=== PATIENT | female | born 1940 | race Caucasian/White ===

== ENCOUNTER 2016-06-07 13:01 | Outpatient (RCR) | payer MEDICARE, OTHER ==
--- OUTSIDE RECORDS SUMMARY | 2016-05-23 12:26 | XMS REPORT | Continuity of Care Document ---
Author Author [facility] Organization [facility] Address Unknown Phone Unavailable Care Team Providers Care Ceramic Coater Name Role Phone TRACY GOMEZ DO PCP Insurance Providers Payer Name Policy Number Subscriber Name Relationship Wps Medicare [id number] Flaquita Nowak 18 Self / Same As Patient [employer] [id number] Flaquita Nowak 18 Self / Same As Patient Advance Directives Directive Response Recorded Date/Time Advance Directives No 10/15/15 3:57pm Health Care Power of Receiving Manager No 10/15/15 3:57pm Organ Donor Yes 10/15/15 3:57pm Resuscitation Status Full Code 10/15/15 3:57pm Chief Complaint and Reason for Visit Chief Complaint Abdominal/GI Problems Reason for Visit Constipation Problems Active Problems Medical Problem Onset Date Status Acute exacerbation of chronic obstructive airways disease Unknown Acute Altered mental status Unknown Acute Bronchitis Unknown Acute COPD (chronic obstructive pulmonary disease) Unknown Acute COPD (chronic obstructive pulmonary disease) Unknown Acute Cholecystitis Unknown Acute Constipation Unknown Acute Fever, unknown origin Unknown Acute Fever, unknown origin Unknown Acute General medical exam Unknown Acute Medications Current Home Medications Medication Dose Units Route Directions Days/Qty Instructions Start Date Albuterol Sulfate/Ipratropium 3 Ml 3 Ml Inhalation Every 4HRS as needed for Wheezing 30 BY NEBULIZER FOR WHEEZING OR UNCONTROLLED COUGH 06/30/13 Cetirizine Hcl 10 Mg 10 Mg Oral Daily 11/16/14 Ferrous Sulfate 325 ( 65 )Mg 325 Mg Oral Daily 11/16/14 Meloxicam (Mobic) 15 Mg 15 Mg Oral Daily 11/16/14 Gabapentin 100 Mg 100 Mg Oral Twice A Day 11/16/14 Gemfibrozil (Lopid) 600 Mg 600 Mg Oral Twice A Day 11/16/14 Fluticasone/Salmeterol 1 Each 1 Puff Inhalation Twice A Day as needed for Shortness Of Breath 11/16/14 Vitamin C/Vitamin E 1 Tab 1 Tab Oral Daily 11/16/14 Naproxen Na-Diphenhydramin Hcl 1 Each 1 Tab Oral Bedtime as needed for Insomnia 11/16/14 Lovastatin (Mevacor) 20 Mg 20 Mg Oral Daily 11/17/14 Sertraline Hcl 100 Mg 100 Mg Oral Daily 11/17/14 Alprazolam 0.25 Mg 0.25 Mg Oral Daily TAKES IN AM 11/17/14 Tiotropium [place] 4 Gm 1 Puff Inhalation Daily 11/17/14 Naproxen Sodium 220 Mg 220 Mg Oral Twice A Day as needed for Pain Alprazolam 0.25 Mg 0.5 Mg Oral Bedtime TAKES 2 (0.25MG) TABLETS Fluticasone Propionate 16 Gm 2 Sprays Nasal Daily 11/17/14 Cyanocobalamin 1,000 Mcg 1,000 Mcg Oral Daily 11/17/14 Insulin Glargine 100 Unit/1 Ml 20 Units Subcutaneously Bedtime 11/17 [Loperamide Hcl] 2 Mg 2 Mg Oral As Needed as needed for Diarrhea 02/26 Past Home Medications Medication Directions Ordered Status Metformin Hcl (Glucophage) 500 Mg Tablet, 500 Mg Oral Twice A Day 03/02/07 Discontinued Glipizide 10 Mg Tablet, 03/02/07 Discontinued Pravastatin Sodium 20 Mg Tablet, 40 Mg Oral Bedtime 03/02/07 Discontinued Alprazolam 0.5 Mg Tablet, 0.25 Mg Oral Three Times A Day as needed for Anxiety 03/02/07 Discontinued Paroxetine Hcl 20 Mg Tablet, 20 Mg Oral Daily 03/02/07 Discontinued Salmeterol Xinafoate/Fluticasone 250 Mcg/50 Mcg Inh, 03/02/07 Discontinued Gemfibrozil 600 Mg Tablet, 600 Mg Oral Twice A Day 03/02/07 Discontinued Gemfibrozil 600 Mg Tablet, 03/02/07 Discontinued Esomeprazole Magnesium 40 Mg Capsule.dr, 1 Cap Oral Daily 08/26/11 Discontinued Multivitamins/Iron/Folic Acid 1 Each Tablet, 1 Each Oral Daily 08/26/11 Discontinued Diclofenac Sodium 75 Mg Tablet.dr, 75 Mg Oral Daily 08/26/11 Discontinued Sucralfate 1 Gm Tab, 1 Gm Oral Three Times A Day 08/26/11 Discontinued [Oscal] , 1 Tab Daily 08/26/11 Discontinued Citalopram Hydrobromide 40 Mg Tablet, 1 Each Oral Daily 08/26/11 Discontinued Mometasone Furoate 17 Gm [place], 1 [place] Nasal As Directed 08/26/11 Discontinued Gabapentin 600 Mg Tablet, 200 Mg Oral Twice A Day 08/26/11 Discontinued Loratadine 10 Mg Tablet, 10 Mg Oral Daily 08/26/11 Discontinued Montelukast Sodium 10 Mg Tablet, 1 Tab Oral Daily 08/26/11 Discontinued Citalopram Hydrobromide 10 Mg Tablet, 20 Mg Oral Daily 02/22/12 Discontinued Ketoconazole 200 Mg Tablet, 200 Mg Oral Daily 02/22/12 Discontinued Omeprazole 20 Mg Capsule.dr, 1 Cap Oral Daily 02/22/12 Discontinued Insulin Glargine 300 Units/3 Ml Soln, 20 Units Sub-Q Bedtime 02/22/12 Discontinued Nitroglycerin 0.4 Mg Subl, 0.4 Mg Sublingual As Needed 02/22/12 Discontinued Fexofenadine Hcl 180 Mg Tablet, 1 Tab Oral Daily 02/22/12 Discontinued Albuterol Sulfate 5 Mg/Ml Solution, 5 Mg Inhalation Q6h Prn 02/22/12 Discontinued Hydrocodone Bit/Acetaminophen 1 Each Tablet, 1 Each Oral Every 6 Hours Discontinued Pramipexole Di-Hcl 0.5 Mg Tablet, 0.5 Mg Oral Daily 02/22/12 Discontinued [place]-3/Dha/Epa/Fish Oil 1 Each Capsule.dr, 1 Each Oral Daily 02/22/12 Discontinued Ferrous Sulfate 325 Mg Tab, 325 Mg Oral Daily 02/22/12 Discontinued Diphenoxylate Hcl/Atropine (Lomotil) 1 Tab Tablet, 1 Each Oral Qid Prn Discontinued Sucralfate 1 G Tablet, 1 G Oral Before Meals 10/10/12 Discontinued Ciprofloxacin 500 Mg Tab, 500 Mg Oral Twice A Day 12/06/12 Discontinued Hydrocodone Bit/Acetaminophen 1 Each Tablet, 1 Each Oral Every 6 Hours Discontinued Zolpidem Tartrate 5 Mg Tab, 5 Mg Oral Bedtime 07/06/13 Discontinued Insulin Detemir 100 Unit/1 Ml Insuln.pen, 20 Unit Sub-Q Bedtime 07/09/13 Discontinued Ranitidine Hcl 150 Mg Tablet, 1 Tab Oral Daily as needed for Indigestion Discontinued Cholestyramine Resin 4 G/Pkt Packet, 1 Pkt Oral Daily 07/09/13 Discontinued Diphenoxylate Hcl/Atropine (Lomotil) 1 Tab Tablet, 2.5 Mg Oral Qid Prn Discontinued Levothyroxine Sodium (Levothroid) 25 Mcg Tablet, 1 Each Oral Daily 07/09/13 Discontinued Sertraline Hcl 100 Mg Tab, 100 Mg Oral Daily 07/09/13 Discontinued Lovastatin (Mevacor) 20 Mg Tablet, 1 Each Oral Daily 07/09/13 Discontinued Oxycodone Hcl/Acetaminophen 1 Each Tablet, 1-2 Tab Oral As Directed as needed for Pain 07/09/13 Discontinued Ciprofloxacin Hcl 500 Mg Tablet, 500 Mg Oral Twice A Day 01/05/14 Discontinued Insulin Glargine,Hum.rec.anlog 100 Unit/1 Ml Vial, 20 Unit Sub-Q Bedtime 02/26 Discontinued Benzonatate (Tessalon Perles) 200 Mg Capsule, 1 Each Oral Three Times A Day as needed for Cough 07/22/14 Discontinued Cefdinir (Omnicef) 300 Mg Capsule, 1 Each Oral Twice A Day 07/22/14 Discontinued Tiotropium [place] 1 Inh Aerp, 1 Inh Inhalation 11/16/14 Discontinued Budesonide/Formoterol Fumarate 1 Inhaler [place], 1 Puff Inhalation Twice A Day as needed for Shortness Of Breath 11/16/14 Discontinued Fluticasone Propionate 16 Gm [place], 16 Gm Nasal 11/16/14 Discontinued Naproxen 500 Mg Tablet, 1 Each Oral Twice A Day 11/16/14 Discontinued Amoxicillin Trihydrate 500 Mg Tablet, 500 Mg Oral Three Times A Day 11/16/14 Discontinued Amoxicillin 500 Mg Capsule, 500 Mg Oral Three Times A Day 11/17/14 Discontinued Social History Social History Problem Response Recorded Date/Time Alcohol Use Denies Use 10/15/2015 3:57pm Recreational Drug Use No 10/15/2015 3:57pm Recent Foreign Travel No 10/15/2015 3:57pm Recent Infectious Disease Exposure No 10/15/2015 3:57pm Hospitalization with Isolation Denies 10/15/2015 3:57pm Sexually Transmitted Disease No 10/15/2015 3:57pm HIV/AIDS No 10/15/2015 3:57pm Smoking Status Former Smoker 10/15/2015 3:57pm Do you dip or chew tobacco? No 10/15/2015 3:57pm Query Response Start Date Stop Date Smoking Status Former Smoker 11/16/2004 Hospital Discharge Instructions No hospital discharge instructions. Plan of Care Discharge Date 10/15/15 4:47pm Disposition 01 HOME, SELF-CARE Condition at Discharge Improved Instructions/Education Provided Constipation (ED) Prescriptions See Medication Section Referrals TRACY GOMEZ DO - Primary Care Physician Additional Instructions/Education U should take one cap full of MiraLAX daily for the next 5 days which you can buy [id number] at [employer] or [employer] or any pharmacy Return to ER for any worsening symptoms such as abdominal pain, fevers, vomiting All discharge instructions reviewed with patient and/or family. Voiced understanding. Functional Status No functional status results. Allergies, Adverse Reactions, Alerts Allergen Type Severity Reaction Status Last Updated hydrocodone ([id number]) Allergy Intermediate Active 11/17/14 Aspirin Adverse Reaction Severe BLEEDING Active 06/30/13 albuterol ([id number]) Allergy Unknown Active 07/22/14 prednisone ([id number]) Allergy Unknown Active 07/22/14 Immunizations Name Given Type Date of Pneumonia Vaccine 02/12/13 Historical Date of Influenza Vaccine 02/12/13 Historical Tetanus Booster (TDap) Unknown Historical Vital Signs Acute Vital Signs Vital Response Date/Time Temperature (Fahrenheit) 97.0 degrees F (97.6 - 99.5) 10/15/2015 3:57pm Temperature (Calculated Celsius) 36.96906 degrees C (36.4 - 37.5) 10/15/2015 3:57pm Pulse Rate (adult) 96 bpm (60 - 90) 10/15/2015 3:57pm Respiratory Rate 18 bpm (12 - 24) 10/15/2015 3:57pm O2 Sat by Pulse Oximetry 94 % (88 - 100) 10/15/2015 3:57pm Blood Pressure 125/87 mm Hg 10/15/2015 3:57pm Blood Pressure Mean 100 mm Hg 10/15/2015 3:57pm Pain Pain Intensity 0 10/15/2015 3:57pm Height (Feet) 5 feet 10/15/2015 3:57pm Height (Inches) 5 inches 10/15/2015 3:57pm Height (Calculated Centimeters) 165.711037 cm 10/15/2015 3:57pm Weight (Pounds) 152 pounds 10/15/2015 3:57pm Weight (Calculated Kilograms) 68.096965 kilograms 10/15/2015 3:57pm Height 5 ft 5 in Weight 152 lb Body Mass Index 25.3 kg/m^2 Results No known relevant diagnostic tests, laboratory data and/or discharge summary. Procedures No known history of procedures. Encounters Encounter Location Arrival/Admit Date Discharge/Depart Date Attending Provider Departed Emergency Room [facility] 10/15/15 3:36pm 10/14 4:47pm JOHN GOLDMAN APRN Recent Diagnosis
[~2016-06-07 13:01] MED LIST: ADV1DS; ALBU5SOL10 IH; ALPR.5T PO; ALPR0.25 PO; ALPR0.254 PO; AMOX500C2 PO; AMOX500T2 PO; BENZ200C25 PO; BUDE6HFA IH; CEFD300C3 PO; CETI10CA8 PO; CHLS4PK PO; CIPR500T78 PO; CITA10TA PO; CITA40TA19 PO; CPR500T PO; CYAN10006 PO; DICL75TA2 PO; DIPH1TAB25 PO; FERR325C PO; FEXO180T PO; FLUT16SP13 NS; FLUT16SP22 NS; FLUT1DIS3 IH; FRS325T PO; GABA-486 PO; GABA600T2 PO; GEMF600T3 PO; GLIP-123; GMFB600T; GMFB600T PO; HYDR-2890 PO; HYDR-757 PO; INSU100C4 SQ; INSU100I16 SQ; INSU100V6 SC; INSU100V6 SQ; IPRA3AMP19 IH; KETO200T PO; LISI5TAB14; LORA10TA7 PO; LOVA20TA2 PO; LVT.025T PO; Loperamide Hcl PO; MELO-195 PO; MMT17NA NS; MNTL10T PO; MTF500T PO; MULT-298 PO; NAPR-243 PO; NAPR1TAB25 PO; NAPR220T29 PO; NF-ESOM40C PO; NFAMINITAB PO; NTR.4SL SL; OMEG-12 PO; OMEP20CA12 PO; OXYC-12 PO; PRAM0.5T4 PO; PRV20T PO; PRX20T PO; RNT150T PO; SCR1T1 PO; SENN-75 PO; SERT100T8 PO; SRTR100T PO; SUCR1TAB PO; TIOT18CA2 IH; TIOT4MIS2 INH; ZLP5T PO; oscal
== END 2016-08-21 | disposition home or self-care (01) ==
LOC: PULM 13:01
PROVIDERS: ATTEND Family Medicine
DX: J44.9 Chronic obstructive pulmonary disease, unspecified (principal)
CPT/HCPCS: 99211

== ENCOUNTER → 2016-06-22 | Outpatient (CLI) | payer MEDICARE, OTHER ==
--- OUTSIDE RECORDS SUMMARY | 2016-06-22 10:44 | XMS REPORT | Continuity of Care Document ---
Author Author [facility] Organization [facility] Address Unknown Phone Unavailable Care Team Providers Care Application Security Developer Name Role Phone TRACY GOMEZ DO PCP Insurance Providers Payer Name Policy Number Subscriber Name Relationship Wps Medicare [id number] Flaquita Nowak 18 Self / Same As Patient [employer] [id number] Flaquita Nowak 17 Self / Same As Patient Advance Directives Directive Response Recorded Date/Time Advance Directives No 10/15/15 3:57pm Health Care Power of Residential Life Director No 10/15/15 3:57pm Organ Donor Yes 10/15/15 [...] Oral Daily TAKES IN AM 11/17/14 Tiotropium [place] 4 Gm 1 Puff Inhalation Daily 11/17/14 [...] Daily 08/26/11 Discontinued Mometasone Furoate 17 Gm [place], 1 [place] Nasal As Directed 08/26/11 Discontinued Gabapentin 600 [...] Tablet, 0.5 Mg Oral Daily 02/22/12 Discontinued [place]-3/Dha/Epa/Fish Oil 1 Each Capsule.dr, 1 Each Oral [...] Oral Twice A Day 07/22/14 Discontinued Tiotropium [place] 1 Inh Aerp, 1 Inh Inhalation 11/16/14 Discontinued Budesonide/Formoterol Fumarate 1 Inhaler [place], 1 Puff Inhalation Twice A Day as needed for Shortness Of Breath 11/16/14 Discontinued Fluticasone Propionate 16 Gm [place], 16 Gm Nasal 11/16/14 Discontinued Naproxen 500 [...] next 5 days which you can buy [id number] at [email or web address] or [employer] or any pharmacy Return to ER for any worsening symptoms such as abdominal pain, fevers, vomiting All discharge instructions reviewed with patient and/or family. Voiced understanding. Functional Status No functional status results. Allergies, Adverse Reactions, Alerts Allergen Type Severity Reaction Status Last Updated hydrocodone ([id number]) Allergy Intermediate Active 11/17/14 Aspirin Adverse Reaction Severe BLEEDING Active 06/30/13 albuterol ([id number]) Allergy Unknown Active 07/22/14 prednisone ([id number]) Allergy Unknown Active 07/22/14 Immunizations Name Given Type Date of Pneumonia Vaccine 02/12/13 Historical Date of Influenza Vaccine 02/12/13 Historical Tetanus Booster (TDap) Unknown Historical Vital Signs Acute Vital Signs Vital Response Date/Time Temperature (Fahrenheit) 97.0 degrees F (97.6 - 99.5) 10/15/2015 3:57pm Temperature (Calculated Celsius) 36.89033 degrees C (36.4 - 37.5) 10/15/2015 3:57pm [...] 5 inches 10/15/2015 3:57pm Height (Calculated Centimeters) 165.519816 cm 10/15/2015 3:57pm Weight (Pounds) 152 pounds 10/15/2015 3:57pm Weight (Calculated Kilograms) 68.467215 kilograms 10/15/2015 3:57pm Height 5 ft 5 in Weight 152 lb Body Mass Index 25.3 kg/m^2 Results No known relevant diagnostic tests, laboratory data and/or discharge summary. Procedures No known history of procedures. Encounters Encounter Location Arrival/Admit Date Discharge/Depart Date Attending Provider Departed Emergency Room [facility] 10/15/15 3:36pm 10/14 4:47pm JOHN GOLDMAN APRN Recent Diagnosis
--- NOTE | 2016-06-22 17:02 | Diagnostic Imaging Report ---
PROCEDURE: US Thyroid. TECHNIQUE: Multiple real-time grayscale images were obtained of the thyroid in various projections. INDICATION: Thyromegaly. FINDINGS: There is a large elongated cystic structure eccentric to the right of midline and just caudal to the lower pole of the right thyroid lobe measuring 3.7 cm long axis with transverse thickness of 1 cm. It showed no nodularity or internal blood flow. Parenchymal cyst 9 mm in the lower pole of the left thyroid lobe noted. The remaining thyroid glands appeared unremarkable. IMPRESSION: Thyroidal parenchyma unremarkable aside from simple subcentimeter left lobe cyst. There is a large cystic lesion inferior to the lower pole of the right thyroid lobe presumed to account for the palpable abnormality. Dictated by: Dictated on workstation # [id number]
== END ==
LOC: RAD 10:40
PROVIDERS: ATTEND Family Medicine
DX: E03.9 Hypothyroidism, unspecified (principal)
CPT/HCPCS: 76536

== ENCOUNTER → 2016-07-06 | Outpatient (CLI) | payer MEDICARE, OTHER ==
--- OUTSIDE RECORDS SUMMARY | 2016-07-06 12:33 | XMS REPORT | Continuity of Care Document ---
Author Author [facility] Organization [facility] Address Unknown Phone Unavailable Care Team Providers Care Database Specialist Name Role Phone TRACY GOMEZ DO PCP Insurance Providers Payer Name Policy Number Subscriber Name Relationship Wps Medicare [id number] Flaquita Nowak 18 Self / Same As Patient [employer] [id number] Flaquita Nowak 17 Self / Same As Patient Advance Directives Directive Response Recorded Date/Time Advance Directives No 10/15/15 3:57pm Health Care Power of Cloth Examiner Hand No 10/15/15 3:57pm Organ Donor Yes 10/15/15 [...] Oral Daily TAKES IN AM 11/17/14 Tiotropium [place] 4 Gm 1 Puff Inhalation Daily 11/17/14 [...] Daily 08/26/11 Discontinued Mometasone Furoate 17 Gm [place], 1 [place] Nasal As Directed 08/26/11 Discontinued Gabapentin 600 [...] Tablet, 0.5 Mg Oral Daily 02/22/12 Discontinued [place]-3/Dha/Epa/Fish Oil 1 Each Capsule.dr, 1 Each Oral [...] Oral Twice A Day 07/22/14 Discontinued Tiotropium [place] 1 Inh Aerp, 1 Inh Inhalation 11/16/14 Discontinued Budesonide/Formoterol Fumarate 1 Inhaler [place], 1 Puff Inhalation Twice A Day as needed for Shortness Of Breath 11/16/14 Discontinued Fluticasone Propionate 16 Gm [place], 16 Gm Nasal 11/16/14 Discontinued Naproxen 500 [...] next 5 days which you can buy [id number] at [employer] or [employer] or any pharmacy Return to ER for any worsening symptoms such as abdominal pain, fevers, vomiting All discharge instructions reviewed with patient and/or family. Voiced understanding. Functional Status No functional status results. Allergies, Adverse Reactions, Alerts Allergen Type Severity Reaction Status Last Updated hydrocodone ([id number]) Allergy Intermediate Active 11/17/14 Aspirin Adverse Reaction Severe BLEEDING Active 06/30/13 albuterol ([id number]) Allergy Unknown Active 07/22/14 prednisone ([id number]) Allergy Unknown Active 07/22/14 Immunizations Name Given Type Date of Pneumonia Vaccine 02/12/13 Historical Date of Influenza Vaccine 02/12/13 Historical Tetanus Booster (TDap) Unknown Historical Vital Signs Acute Vital Signs Vital Response Date/Time Temperature (Fahrenheit) 97.0 degrees F (97.6 - 99.5) 10/15/2015 3:57pm Temperature (Calculated Celsius) 36.30868 degrees C (36.4 - 37.5) 10/15/2015 3:57pm [...] 5 inches 10/15/2015 3:57pm Height (Calculated Centimeters) 165.375715 cm 10/15/2015 3:57pm Weight (Pounds) 152 pounds 10/15/2015 3:57pm Weight (Calculated Kilograms) 68.692780 kilograms 10/15/2015 3:57pm Height 5 ft 5 in Weight 152 lb Body Mass Index 25.3 kg/m^2 Results No known relevant diagnostic tests, laboratory data and/or discharge summary. Procedures No known history of procedures. Encounters Encounter Location Arrival/Admit Date Discharge/Depart Date Attending Provider Departed Emergency Room [facility] 10/15/15 3:36pm 10/14 4:47pm JOHN GOLDMAN APRN Recent Diagnosis
--- NOTE | 2016-07-06 13:39 | Diagnostic Imaging Report ---
PROCEDURE: CT neck soft tissue without contrast. TECHNIQUE: Multiple contiguous axial images were obtained through the neck without the use of intravenous contrast. INDICATION: Right-sided neck mass. FINDINGS: The recent thyroid ultrasound exam performed on 06/22/16 noted an elongated 1 x 3.7 cm cystic mass along the inferior pole of the right lobe of the thyroid. That finding is again evident on this exam. This cystic mass does appear to extend across the midline and by my measurements this area measures approximately 3 x 3 cm. In reviewing the previous CT chest exam of 07/18/14, this cystic mass was not clearly evident. The ultrasound exam suggested that this cyst had a generally benign appearance. However, its precise etiology is not certain. The fact that it has developed since 2015 is also concerning. An ENT consult would be recommended for further evaluation. The thyroid gland is otherwise generally unremarkable. As noted on the ultrasound exam, there are a few small cysts within the gland. The remainder of the neck is unremarkable for an acute abnormality. There is no mass or adenopathy noted. The tracheal air shadow is not compressed or deviated. The visualized portions of the intracranial contents and the lung apices show no sign of an acute abnormality. There are emphysematous changes involving the lung apices. The bone windows are unremarkable for a fracture or for a destructive lesion. IMPRESSION: 1. There is a roughly 3 x 3 cm cystic mass extending caudally from the inferior pole of the right lobe of the thyroid across the midline. This finding is most likely benign although its precise etiology is not certain. An ENT consult would be recommended for further study. 2. There is no other mass or adenopathy noted. 3. There is no sign of an acute abnormality. 4. These results were discussed with Dr. Cronin. Dictated by: Dictated on workstation # [id number]
== END ==
LOC: RAD 12:29
PROVIDERS: ATTEND Family Medicine
DX: D23.4 Other benign neoplasm of skin of scalp and neck (principal)
CPT/HCPCS: 70490

== ENCOUNTER → 2016-11-07 | Outpatient (CLI) | payer MEDICARE, OTHER ==
--- NOTE | 2016-11-09 11:40 | Diagnostic Imaging Report ---
EXAMINATION: Bilateral screening mammogram with a Computer Aided Detection (CAD) system. INDICATION: Screening. PERSONAL HISTORY: No current complaints stated on the questionnaire. COMPARISON: 10/29/2013. FINDINGS: The breasts are composed of heterogeneously dense parenchyma which may decrease mammographic sensitivity. There are scattered benign-appearing calcifications. Allowing for technique and positional differences, no suspicious change is seen. IMPRESSION: No significant change. ACR BI-RADS Category 2: Benign findings. Result letter will be mailed to the patient. Note: At least 10% of breast cancer is not imaged by mammography. Dictated by: Dictated on workstation # [id number]
== END ==
LOC: RAD 10:25
PROVIDERS: ATTEND Family Medicine
DX: Z12.31 Encounter for screening mammogram for malignant neoplasm of breast (principal)
CPT/HCPCS: 77067

== ENCOUNTER 2016-11-12 08:30 | Emergency (ER) | payer MEDICARE, OTHER ==
[~2016-11-12] VITALS: Ht 165.1 cm; Wt 77.1 kg
[2016-11-12] MEDS ORDERED: NS IV 1000 ML 1,000 ML IV ONE (08:50)
--- NOTE | 2016-11-12 08:50 | ED GI ---
General Chief Complaint: Abdominal/GI Problems Stated Complaint: BOWEL TROUBLE Source of Information: Patient Exam Limitations: No Limitations History of Present Illness Time Seen By Provider: 08:45 Initial Comments Patient presents with one month history of diarrhea daily which she is been working up with her primary care physician and started Lomotil 2 tablets with each meal about a month ago. She feels that this has not helped her diarrhea and she is been incontinent of stool for the past month. She has mild diffuse tenderness of her abdomen but no actual pain. She feels her rectum is tender from all the diarrhea. She states she would like to be placed in the hospital to get an answering get it fixed today. She states she did see blood streak in her vomit. She is unsure she's been placed on any antibiotics. She states she was told the past after a colonoscopy she had diverticulosis. After her initial workup the patient relates to me that she is also had a recent bout of C. difficile colitis approximately 2 months ago and spent some time in [facility] in [place]. Patient states she completed her antibiotics went home but this loose stool never really resolved. Allergies and Home Medications Allergies Coded Allergies: hydrocodone (Verified Allergy, Intermediate, 11/17/14) PATIENT BECOMES CONFUSED WITH THIS MEDICATIONS albuterol (Verified Allergy, Unknown, 07/22/14) prednisone (Verified Allergy, Unknown, 07/22/14) aspirin (Verified Adverse Reaction, Severe, BLEEDING, 06/30/13) Home Medications Albuterol Sulfate/Ipratropium 3 Ml Solution, 3 ML IH Q4H PRN for WHEEZING, #30 BY NEBULIZER FOR WHEEZING OR UNCONTROLLED COUGH Prescribed by: LEYDA RANGEL on 06/30/13 1705 Alprazolam 0.25 Mg Tablet, 0.25 MG PO DAILY, (Reported) TAKES IN AM Alprazolam 0.25 Mg Tablet, 0.5 MG PO HS, (Reported) TAKES 2 (0.25MG) TABLETS Cetirizine HCl 10 Mg Capsule, 10 MG PO DAILY, (Reported) Cyanocobalamin 1,000 Mcg Tablet, 1,000 MCG PO DAILY, (Reported) Ferrous Sulfate 325 ( 65 )Mg Capsule.sa, 325 MG PO DAILY, (Reported) Fluticasone Propionate 16 Gm Naspr, 2 SPRAYS NS DAILY, (Reported) Fluticasone/Salmeterol 1 Each Disk.w.dev, 1 PUFF IH BID PRN for SHORTNESS OF BREATH, (Reported) Gabapentin 100 Mg Capsule, 100 MG PO BID, (Reported) Gemfibrozil 600 Mg Tablet, 600 MG PO BID, (Reported) Insulin Glargine,Hum.rec.anlog 100 Unit/1 Ml Vial, 20 UNITS SC HS, (Reported) Lovastatin 20 Mg Tablet, 20 MG PO DAILY, (Reported) Meloxicam 15 Mg Tablet, 15 MG PO DAILY, (Reported) Naproxen Na-Diphenhydramin HCl 1 Each Tablet, 1 TAB PO HS PRN for INSOMNIA, ( Reported) Naproxen Sodium 220 Mg Tablet, 220 MG PO BID PRN for PAIN, (Reported) Sertraline Hcl 100 Mg Tablet, 100 MG PO DAILY, (Reported) Tiotropium [place] 4 Gm Mist.inhal, 1 PUFF INH DAILY, (Reported) Vitamin C/Vitamin E 1 Tab Tab, 1 TAB PO DAILY, (Reported) [Loperamide Hcl] 2 MG CAPSULE, 2 MG PO NEEDED PRN for DIARRHEA Prescribed by: BATOOL ESPARZA on 11/21/14 1054 Review of Systems Constitutional: No chills, No diaphoresis, No fever, No malaise Respiratory: Denies Cough, Denies Shortness of Air, Denies Wheezing Cardiovascular: Denies Chest Pain, Denies Palpitations, Denies Syncope Gastrointestinal: See HPI Genitourinary: Denies Burning, Denies Discharge Musculoskeletal: No back pain, No joint pain Skin: No pruritus, No rash Hematologic/Lymphatic: Denies Easy Bleeding, Denies Easy Bruising Past Orqoblj-Wxpdyb-Csufvb Hx Patient Social History Alcohol Use: Denies Use Recreational Drug Use: No Smoking Status: Never a Smoker Former Smoker/When Quit: Nov 16, 2004 Recent Foreign Travel: No Contact w/Someone Who Travel: No Immunizations Up To Date Tetanus Booster (TDap): Unknown Date of Pneumonia Vaccine: Feb 12, 2013 Date of Influenza Vaccine: Feb 12, 2013 Seasonal Allergies Seasonal Allergies: Yes Surgeries HX Surgeries: Yes Surgeries: Hysterectomy, Oophorectomy Respiratory Hx Respiratory Disorders: Yes Respiratory Disorders: Asthma, Chronic Bronchitis, COPD Cardiovascular Hx Cardiac Disorders: Yes Cardiac Disorders: Hypertension Neurological Hx Neurological Disorders: No Reproductive System Hx Reproductive Disorders: Yes (hysterectomy due to tumor at age 38) Sexually Transmitted Disease: No HIV/AIDS: No Female Reproductive Disorders: Menstrual Problems [employer] History: Hysterectomy Genitourinary Hx Genitourinary Disorders: No Gastrointestinal Hx Gastrointestinal Disorders: Yes Gastrointestinal Disorders: Gastroesophageal Reflux, Chronic Constipation Musculoskeletal Hx Musculoskeletal Disorders: No Endocrine Hx 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, Non-Insulin dep HEENT HX ENT Disorders: No Cancer Hx Cancer: Yes Cancer: Uterine Psychosocial Hx Psychiatric Problems: Yes Behavioral Health Disorders: Anxiety, Depression Integumentary HX Skin/Integumentary Disorder: No Blood Transfusions Hx Blood Disorders: No Adverse Reaction to a Blood Tr: No Family Medical History Family Medial History: Alcoholism FH: lung cancer Physical Exam Vital Signs VS - Last 72 Hours, by Label 11/12/16 08:51 Temp 97.8 Pulse 78 Resp 16 B/P (MAP) 125/71 Pulse Ox 98 O2 Delivery Room Air Capillary Refill : General Appearance: WD/WN, no apparent distress HEENT: PERRL/EOMI, pharynx normal Neck: non-tender, normal inspection Respiratory: lungs clear, normal breath sounds Cardiovascular: normal peripheral pulses, regular rate, rhythm, no edema, other (Refill less than 3 seconds bilateral lower extremities) Peripheral Pulses: 3+ Dorsalis Pedis (R), 3+ Left Dors-Pedis (L), 3+ Radial Pulses (R), 3+ Radial Pulses (L) Gastrointestinal: normal bowel sounds, soft, no organomegaly, tenderness ( diffuse, mild) Extremities: non-tender, normal inspection Back: normal inspection, no CVA tenderness Neurologic/Psychiatric: alert, oriented x 3 Skin: normal color, warm/dry Progress/Results/Core Measures Results/Orders Lab Results Laboratory Tests Test 11/12/16 09:10 11/12/16 10:30 Range/Units White Blood Count 5.5 4.3-11.0 10^3/uL Red Blood Count 4.97 4.35-5.85 10^6/uL Hemoglobin 14.0 11.5-16.0 G/DL Hematocrit 42 35-52 % Mean Corpuscular Volume 84 80-99 FL Mean Corpuscular Hemoglobin 28 25-34 PG Mean Corpuscular Hemoglobin Concent 33 32-36 G/DL Red Cell Distribution Width 13.6 10.0-14.5 % Platelet Count 171 130-400 10^3/uL Mean Platelet Volume 11.7 H 7.4-10.4 FL Neutrophils (%) (Auto) 70 42-75 % Lymphocytes (%) (Auto) 22 12-44 % Monocytes (%) (Auto) 8 0-12 % Eosinophils (%) (Auto) 1 0-10 % Basophils (%) (Auto) 0 0-10 % Neutrophils # (Auto) 3.8 1.8-7.8 X 10^3 Lymphocytes # (Auto) 1.2 1.0-4.0 X 10^3 Monocytes # (Auto) 0.4 0.0-1.0 X 10^3 Eosinophils # (Auto) 0.1 0.0-0.3 10^3/uL Basophils # (Auto) 0.0 0.0-0.1 10^3/uL Sodium Level 140 135-145 MMOL/L Potassium Level 3.5 L 3.6-5.0 MMOL/L Chloride Level 101 98-107 MMOL/L Carbon Dioxide Level 22 21-32 MMOL/L Anion Gap 17 H 5-14 MMOL/L Blood Urea Nitrogen 9 7-18 MG/DL Creatinine 0.72 0.60-1.30 MG/DL Estimat Glomerular Filtration Rate > 60 BUN/Creatinine Ratio 13 Glucose Level 129 H 70-105 MG/DL Calcium Level 9.5 8.5-10.1 MG/DL Magnesium Level 1.8 1.8-2.4 MG/DL Total Bilirubin 0.9 0.1-1.0 MG/DL Aspartate Amino Transf (AST/SGOT) 26 5-34 U/L Alanine Aminotransferase (ALT/SGPT) 26 0-55 U/L Alkaline Phosphatase 80 40-136 U/L C-Reactive Protein High Sensitivity 0.47 0.00-0.50 MG/DL Total Protein 6.3 L 6.4-8.2 GM/DL Albumin 3.4 3.2-4.5 GM/DL Amylase Level 38 25-125 U/L Urine Color YELLOW Urine Clarity CLEAR Urine pH 6 5-9 Urine Specific [place] 1.015 L 1.016-1.022 Urine Protein 2+ H NEGATIVE Urine Glucose (UA) NEGATIVE NEGATIVE Urine Ketones 4+ H NEGATIVE Urine Nitrite NEGATIVE NEGATIVE Urine Bilirubin NEGATIVE NEGATIVE Urine Urobilinogen NORMAL NORMAL MG/DL Urine Leukocyte Esterase 1+ H NEGATIVE Urine RBC (Auto) NEGATIVE NEGATIVE Urine RBC NONE /HPF Urine WBC 2-5 /HPF Urine Crystals NONE /LPF Urine Bacteria FEW H /HPF Urine Casts NONE /LPF Urine Mucus LARGE H /LPF Urine Culture Indicated NO My Orders Orders - MILDRED JAMES Ct Abdomen/Pelvis Wo (11/12/16 08:50) Saline Lock/Iv-Start (11/12/16 08:50) Amylase (11/12/16 08:50) Cbc With Automated Diff (11/12/16 08:50) Comprehensive Metabolic Panel (11/12/16 08:50) Hs C Reactive Protein (11/12/16 08:50) Magnesium (11/12/16 08:50) Ua Culture If Indicated (11/12/16 08:50) Saline Lock/Iv-Start (11/12/16 08:50) Ns Iv 1000 Ml (Sodium Chloride 0.9%) (11/12/16 08:50) Ondansetron Injection (Zofran Injectio (11/12/16 09:00) Hyoscyamine Sl Tablet (Levsin Sl Tablet) (11/12/16 09:30) Parasite Complete Exam Stool (11/12/16 10:55) C Difficile Ag + Toxin A/B. (11/12/16 10:55) Occult Blood Stool (11/12/16 10:58) Stool Culture (11/12/16 10:58) Fecal Wbc (11/12/16 10:58) Medications Given in ED Current Medications Medications Dose Ordered Sig/Ruddy Route Start Time Stop Time Status Last Admin Dose Admin Hyoscyamine Sulfate 0.125 mg ONCE ONCE PO 11/12/16 09:30 11/12/16 09:31 DC 11/12/16 09:45 0.125 MG Ondansetron HCl 4 mg ONCE ONCE IVP 11/12/16 09:00 11/12/16 09:01 DC 11/12/16 09:12 4 MG Sodium Chloride 1,000 ml @ 0 mls/hr Q0M ONCE IV 11/12/16 08:50 11/12/16 08:55 DC 11/12/16 09:12 1,000 MLS/HR Vital Signs/I&O Vital Sign - Last 12Hours 11/12/16 08:51 Temp 97.8 Pulse 78 Resp 16 B/P (MAP) 125/71 Pulse Ox 98 O2 Delivery Room Air Progress Note #1: Time: 09:25 Progress Note Patient presents with a nonacute complaint of one month diarrhea and vomiting with hematemesis. She is requesting to be placed inpatient physician get a second opinion. We will do some workup to ensure there is not an anemia or other worrisome subacute factor. She has been encouraged to work this diarrhea up outpatient with either her PCP or another. I reviewed the pharmacy records do indicate she was on cluster pole which is a bile acids Questran which may be a cause of diarrhea but the patient is not a very good historian and not sure what meds she is on. She states she has been taking the Lomotil as prescribed but cannot tell me how it was prescribed. Progress Note #2: Time: 10:11 Progress Note Radiologist agrees to CT CAT scan does show some small bowel and sigmoid diverticulosis without any evidence of acute inflammation. This is a chronic problem. Patient had a hard time producing urine and was given hyoscyamine on top of the atropine that she states she is taking at home. She'll probably be very careful using anticholinergics she is having urinary retention despite getting a liter of fluids. Also possible she is just very dehydrated. The bladder on CAT scan did not appear distended. Progress Note #3: Time: 10:51 Progress Note Obtain urine by straight catheter. The patient is having some bowel seepage but has not had a bowel movement since she's been here. Possibility of C. difficile colitis is exceptionally low. We will go ahead and obtain stool studies to include ova and parasite that can be followed by her primary care physician. Possible she has a post infectious- irritable bowel syndrome or some other subacute chronic infectious cause so we will obtain stool studies by digital rectal exam and she can bring in a stool sample later to the lab if she is continuing to have diarrhea . Her inability to have a bowel movement may also be reflective of her use of loperamide/atropine as well as a hyoscyamine given this morning. She states that she was having diarrhea despite the Lomotil but the hyoscyamine has worked well so we will have her stop the Lomotil and continue the hyoscyamine to until she sees her primary care physician. Diagnostic Imaging Diagonstic Imaging: CT Plain Films/CT/US/NM/MRI: abdomen (W/O) Comments Phlebolith and fecaliths; and there are diverticula without bowel wall thickening. The colon is decompressed. Bladder unremarkable. No stone seen in the kidney or ureter system. Pancreas and biliary system unremarkable. NAME: FLAVIA PRAD[facility] REC#: [id number] PT STATUS: REG ER : 1940 PHYSICIAN: MILDRED JAMES MD ADMIT DATE: 11/12/16/ER Draft Date of Exam:11/12/16 CT ABDOMEN/PELVIS WO PROCEDURE: CT abdomen and pelvis without contrast. TECHNIQUE: Multiple contiguous axial images were obtained through the abdomen and pelvis without the use of intravenous contrast. INDICATION: Diarrhea. Study compared 11/18/2014. Gallbladder absent. The liver, spleen, adrenals, pancreas unremarkable. There is no biliary ductal dilatation. There is no hydronephrosis and no opaque kidney stone. The appendix contains appendicoliths but is nondilated and nonacute. There is noninflamed diverticulosis of the sigmoid colon. No evidence for small or large bowel obstruction. No perienteric or pericolonic edema. There is no ascites, abscess, hematoma or other fluid collection. No focal inflammatory process. No pneumatosis or free air. There are few scattered outpouchings of air along the margins of small bowel loops likely some scattered small bowel diverticula. No evidence for small bowel diverticulitis. No focal inflammatory process. IMPRESSION: Scattered large and likely small bowel diverticuli without evidence of acute inflammation. No findings of acute appendicitis. Unobstructed urinary tracts. No acute appearing abdominal or pelvic abnormality. Dictated on workstation # [id number] Dict: 11/12/16 0949 Trans: 11/12/16 0959 [facility] [id number] Interpreted by: RALPH GARLAND Reviewed: Reviewed by Me Departure Impression Impression: Primary Impression: Nausea and vomiting Qualified Codes: K92.0 - Hematemesis; R11.0 - Nausea Additional Impression: Diarrhea Qualified Codes: R19.7 - Diarrhea, unspecified Disposition: 01 HOME, SELF-CARE Condition: Improved Departure-Patient Inst. Decision time for Depature: 11:13 Referrals: TRACY GOMEZ DO (PCP/Family) Primary Care Physician Patient Instructions: Irritable Bowel Syndrome (DC) Add. Discharge Instructions: Your diarrhea does not appear to be caused by any acutely emergent infectious cause such as C. difficile colitis. However we will obtain studies from the stool that you take to the lab that will be ready for your primary care physician to read early next week. You are encouraged to eat lots of fiber in your diet to include dark green leafy vegetables, spinach, Kale and you may also use supplemental fiber such as capsules or Metamucil fiber powders. You should discontinue the Lomotil and start the Hyoscyamine, (Levsin) 3 times daily. Follow up with your primary care physician next week to discuss lab results as well as the possibility of referral to gastroenterology. If you're having new or worsening symptoms such as fevers, chills or inability to keep any fluids down you can return to the ER and we will be more than happy to help you out. If you're having any nausea you should take the Zofran at the first sign every 6 hours as needed. All discharge instructions reviewed with patient and/or family. Voiced understanding. Scripts Hyoscyamine Sulfate (Hyoscyamine Sulfate) 0.125 Mg Tab.rapdis 0.125 MG PO TIDAC for 14 Days, #42 TAB 0 Refills Prov: MILDRED JAMES 11/12/16 Ondansetron HCl (Zofran) 4 Mg Tab 4 MG PO Q6H Y for NAUSEA/VOMITING-1ST LINE, #20 TAB 0 Refills Prov: MILDRED JAMES 11/12/16 Copy Copies To 1: TRACY GOMEZ TITUS J Nov 12, 2016 08:50
[2016-11-12] MEDS ORDERED: ONDANSETRON 4 MG/2 ML (SDV) Z0FRAN IVP ONE (09:00)
[2016-11-12 09:19] LABS: BASOPHILS % (AUTO) 0 % (0-10); EOSINOPHILS # (AUTO) 0.1 10^3/uL (0.0-0.3); EOSINOPHILS % (AUTO) 1 % (0-10); LYMPHOCYTES # (AUTO) 1.2 X 10^3 (1.0-4.0); LYMPHOCYTES % (AUTO) 22 % (12-44); MEAN CORPUSCULAR HEMOGLOBIN 28 PG (25-34); MEAN CORPUSCULAR HGB CONC 33 G/DL (32-36); MEAN CORPUSCULAR VOLUME 84 FL (80-99); MEAN PLATELET VOLUME 11.7 FL (7.4-10.4); MONOCYTES # (AUTO) 0.4 X 10^3 (0.0-1.0); MONOCYTES % (AUTO) 8 % (0-12); NEUTROPHILS # (AUTO) 3.8 X 10^3 (1.8-7.8); NEUTROPHILS % (AUTO) 70 % (42-75); PLATELET COUNT 171 10^3/uL (130-400); RED BLOOD COUNT 4.97 10^6/uL (4.35-5.85); RED CELL DISTRIBUTION WIDTH 13.6 % (10.0-14.5); WHITE BLOOD COUNT 5.5 10^3/uL (4.3-11.0)
[2016-11-12] MEDS ORDERED: HYOSCYAMINE 0.125 MG (LEVSIN) TAB PO ONE (09:30)
[2016-11-12 10:00] LABS: ALANINE AMINOTRANSFERASE 26 U/L (0-55); ALBUMIN 3.4 GM/DL (3.2-4.5); AMYLASE 38 U/L (25-125); ANION GAP 17 MMOL/L (5-14); ASPARTATE AMINO TRANSFERASE 26 U/L (5-34); BILIRUBIN,TOTAL 0.9 MG/DL (0.1-1.0); BLOOD UREA NITROGEN 9 MG/DL (7-18); BUN/CREATININE RATIO 13; CALCIUM 9.5 MG/DL (8.5-10.1); CARBON DIOXIDE 22 MMOL/L (21-32); CHLORIDE 101 MMOL/L (98-107); CREATININE SERUM 0.72 MG/DL (0.60-1.30); GFR ESTIMATED > 60; GLUCOSE 129 MG/DL (70-105); MAGNESIUM 1.8 MG/DL (1.8-2.4); POTASSIUM 3.5 MMOL/L (3.6-5.0); SODIUM 140 MMOL/L (135-145); TOTAL PROTEIN 6.3 GM/DL (6.4-8.2); hs C REACTIVE PROTEIN 0.47 MG/DL (0.00-0.50)
--- NOTE | 2016-11-12 10:00 | Diagnostic Imaging Report ---
PROCEDURE: CT abdomen and pelvis without contrast. TECHNIQUE: Multiple contiguous axial images were obtained through the abdomen and pelvis without the use of intravenous contrast. INDICATION: Diarrhea. Study compared 11/18/2014. Gallbladder absent. The liver, spleen, adrenals, pancreas unremarkable. There is no biliary ductal dilatation. There is no hydronephrosis and no opaque kidney stone. The appendix contains appendicoliths but is nondilated and nonacute. There is noninflamed diverticulosis of the sigmoid colon. No evidence for small or large bowel obstruction. No perienteric or pericolonic edema. There is no ascites, abscess, hematoma or other fluid collection. No focal inflammatory process. No pneumatosis or free air. There are few scattered outpouchings of air along the margins of small bowel loops likely some scattered small bowel diverticula. No evidence for small bowel diverticulitis. No focal inflammatory process. IMPRESSION: Scattered large and likely small bowel diverticuli without evidence of acute inflammation. No findings of acute appendicitis. Unobstructed urinary tracts. No acute appearing abdominal or pelvic abnormality. Dictated by: Dictated on workstation # [id number]
[2016-11-12 10:36] LABS: BILIRUBIN,URINE NEGATIVE (NEGATIVE); KETONES,URINE 4+ (NEGATIVE); LEUKOCYTE ESTERASE ,URINE 1+ (NEGATIVE); NITRITE,URINE NEGATIVE (NEGATIVE); PH,URINE 6 (5-9); PROTEIN,URINE 2+ (NEGATIVE); UROBILINOGEN,URINE NORMAL (NORMAL)
[2016-11-12] MEDS ORDERED: ONDN4T PO (11:15)
[2016-11-12] MEDS ORDERED: HYOS0.1217 PO (11:15)
[2016-11-12 11:25] VITALS: BP 122/70
--- OUTSIDE RECORDS SUMMARY | 2016-11-15 04:10 | XMS REPORT | Continuity of Care Document ---
Author Author [facility] Address Unknown Phone Unavailable Allergies Active Description Code Type Severity Reaction Onset Reported/Identified Relationship to Patient Clinical Status Yes aspirin [id number] Drug Allergy Severe BLEEDING 06/30/2013 Yes aspirin Drug Allergy N/A N/A 10/15/2013 Yes progesterone Drug Allergy N/A N/A 10/15/2013 Yes albuterol [id number] Drug Allergy Unknown N/A 07/22/2014 Yes prednisone [id number] Drug Allergy Unknown N/A 07/22/2014 Yes hydrocodone [id number] Drug Allergy Moderate N/A 11/17/2014 Medications Problems Date Dx Coded Attending Type Code Diagnosis Diagnosed By 03/26/2010 Ot 562.10 03/26/2010 Ot 787.91 07/30/2011 Ot 560.32 FECAL IMPACTION 07/30/2011 Ot 564.00 UNSPEC CONSTIPATION 08/24/2011 Ot 285.9 ANEMIA NOS 08/26/2011 Ot 250.00 DIAB SAY WO COMPL, TYPE II OR UNSPEC TY 08/26/2011 Ot 280.0 CHR BLOOD LOSS ANEMIA 08/26/2011 Ot 300.00 ANXIETY STATE NOS 08/26/2011 Ot 455.3 EXT HEMORRHOID W/O COMPL 08/26/2011 Ot 496 CHR AIRWAY OBSTRUCT NEC 08/26/2011 Ot 531.90 STOMACH ULCER NOS 08/26/2011 Ot 532.90 DUODENAL ULCER NOS 08/26/2011 Ot 553.3 DIAPHRAGMATIC HERNIA 08/26/2011 Ot 562.10 DIVERTICULOSIS COLON (W/O MENT OF HEMORR 08/26/2011 Ot 569.82 ULCERATION OF INTESTINE 08/26/2011 Ot 599.0 URIN TRACT INFECTION NOS 08/26/2011 Ot V58.67 LONG-TERM (CURRENT) USE OF INSULIN 08/26/2011 Ot V58.69 OTH MED,LT,CURRENT USE 11/23/2011 Ot 285.9 ANEMIA NOS 11/23/2011 Ot V58.69 OTH MED,LT,CURRENT USE 11/30/2011 RYAN POOLE APRN L V05.8 ZOSTAVAX DX 11/30/2011 RYAN POOLE APRN L V05.8 ZOSTAVAX DX 01/04/2012 Ot 728.87 MUSCLE WEAKNESS (GENERALIZED) 01/04/2012 Ot 729.5 PAIN IN LIMB 01/04/2012 Ot V57.1 PHYSICAL THERAPY NEC 01/17/2012 RYAN POOLE APRN L V04.81 FLU DX (3 YRS AND ABOVE, IM) 01/17/2012 MADL LORENZO, RYAN L V04.81 FLU DX (3 YRS AND ABOVE, IM) 08/12/2012 Ot 250.00 DIAB SAY WO COMPL, TYPE II OR UNSPEC TY 08/12/2012 Ot 285.9 ANEMIA NOS 08/12/2012 Ot 787.91 DIARRHEA 08/12/2012 Ot V58.67 LONG-TERM (CURRENT) USE OF INSULIN 10/29/2012 MARSHA BERGERON MD Ot 250.00 DIAB SAY WO COMPL, TYPE II OR UNSPEC TY 10/29/2012 MARSHA BERGERON MD Ot 787.01 NAUSEA WITH VOMITING 10/29/2012 MARSHA BERGERON MD Ot 791.9 ABN URINE FINDINGS NEC 10/29/2012 MARSHA BERGERON MD Ot V58.67 LONG-TERM (CURRENT) USE OF INSULIN 10/29/2012 MARSHA BERGERON MD Ot V58.69 OTH MED,LT,CURRENT USE 11/04/2012 MOHIT DO, PANCHO K Ot 564.00 UNSPEC CONSTIPATION 12/06/2012 JENNIFER BRISCOE MD R Ot 719.46 JOINT PAIN-L/LEG 12/06/2012 JENNIFER BRISCOE MD R Ot 845.00 SPRAIN OF ANKLE NOS 12/06/2012 JENNIFER BRISCOE MD R Ot 959.7 LOWER LEG INJURY NOS 12/06/2012 JENNIFER BRISCOE MD R Ot E000.8 OTHER EXTERNAL CAUSE STATUS 12/06/2012 JENNIFER BRISCOE MD R Ot E849.0 ACCIDENT IN HOME 12/06/2012 JENNIFER BRISCOE MD R Ot E888.9 FALL NOS 06/30/2013 DAVID VALENTIN, LEYDA Blanc Ot 491.21 OBSTR CHRONIC BRONCHITIS, W (ACUTE) EXAC 06/30/2013 DAVID VALENTIN, LEYDA Blanc Ot 786.2 COUGH 07/09/2013 CHAO VALENTIN, LITO Barrera Ot 250.00 DIAB SAY WO COMPL, TYPE II OR UNSPEC TY 07/09/2013 LITO GUIDRY MD Ot 331.0 ALZHEIMER'S DISEASE 07/09/2013 LITO GUIDRY MD Ot 401.9 HYPERTENSION NOS 07/09/2013 LITO GUIDRY MD Ot 496 CHR AIRWAY OBSTRUCT NEC 07/09/2013 LITO GUIDRY MD Ot 530.81 ESOPHAGEAL REFLUX 07/09/2013 LITO GUIDRY MD Ot 574.00 CHOLELITH W AC CHOLECYST 10/15/2013 MADL SANDING MACHINE TENDER AUTOMATIC, RYAN L 250.00 DIABETES II CONTROLLED (UNCOMPLICATED) 10/15/2013 MADL SANDING MACHINE TENDER [employer], RYAN L 356.9 UNSPECIFIED IDIOPATHIC PERIPHERAL NEUROPATHY 10/15/2013 MADL SANDING MACHINE TENDER [employer], RYAN L 496 COPD 10/15/2013 MADL SANDING MACHINE TENDER [employer], RYAN L 556.9 ULCERATIVE COLITIS UNSPECIFIED 10/15/2013 MADL SANDING MACHINE TENDER [employer], RYAN L 250.00 DIABETES II CONTROLLED (UNCOMPLICATED) 10/15/2013 MADL SANDING MACHINE TENDER [employer], RYAN L 356.9 UNSPECIFIED IDIOPATHIC PERIPHERAL NEUROPATHY 10/15/2013 MADL SANDING MACHINE TENDER AUTOMAT[employer], RYAN L 496 COPD 10/15/2013 MADL SANDING MACHINE TENDER AUTOMAT[employer], RYAN L 556.9 ULCERATIVE COLITIS UNSPECIFIED 01/05/2014 JOSE ANTONIO SALCEDO MD Ot 250.00 DIAB SAY WO COMPL, TYPE II OR UNSPEC TY 01/05/2014 JOSE ANTONIO SALCEDO MD Ot 791.9 ABN URINE FINDINGS NEC 01/05/2014 JOSE ANTONIO SALCEDO MD Ot 880.03 OPEN WOUND OF UPPER ARM 01/05/2014 JOSE ANTONIO SALCEDO MD Ot E000.8 OTHER EXTERNAL CAUSE STATUS 01/05/2014 JOSE ANTONIO SALCEDO MD Ot E849.0 ACCIDENT IN HOME 01/05/2014 JOSE ANTONIO SALCEDO MD Ot E888.9 FALL NOS 01/05/2014 JOSE ANTONIO SALCEDO MD Ot V06.1 [id number], COMBINED [ 01/05/2014 JOSE ANTONIO SALCEDO MD Ot V58.67 LONG-TERM (CURRENT) USE OF INSULIN 06/25/2014 Ot V76.12 06/25/2014 Ot 490 06/25/2014 Ot V49.81 06/25/2014 Ot V82.81 06/25/2014 Ot 331.9 06/25/2014 Ot 780.97 06/25/2014 Ot V81.5 06/25/2014 Ot 414.00 06/25/2014 Ot V76.12 06/25/2014 CHAO VALENTIN, LITO Barrera Ot 438.0 06/25/2014 CHAO VALENTIN, LITO D Ot 473.0 06/25/2014 CHAO VALENTIN, LITO D Ot 787.91 06/25/2014 RACHNA VALENTIN, JENNIFER R Ot V76.12 07/22/2014 Ot 491.20 OBSTR CHRONIC BRONCHITIS, W/O EXACERBATI 07/22/2014 Ot 786.2 COUGH 08/08/2014 Ot 491.20 08/19/2014 Ot 786.30 08/20/2014 PANCHO RUEDA DO Ot 466.0 ACUTE BRONCHITIS 08/20/2014 PANCHO RUEDA DO K Ot 787.02 NAUSEA ALONE 09/24/2014 RACHNA VALENTIN, JENNIFER R Ot 715.34 10/20/2014 JUAN JOSE GRAVES DO Ot 496 CHR AIRWAY OBSTRUCT NEC 10/24/2014 RACHNA VALENTIN, JENNIFER R Ot 715.34 10/29/2014 RACHNA VALENTIN, JENNIFER R Ot 715.34 11/17/2014 TRACY GOMEZ DO S Ot 496 11/21/2014 RACHNA VALENTIN, JENNIFER R Ot 250.00 DIAB SAY WO COMPL, TYPE II OR UNSPEC TY 11/21/2014 RACHNA VALENTIN, JENNIFER R Ot 285.9 ANEMIA NOS 11/21/2014 RACHNA VALENTIN, JENNIFER R Ot 298.9 PSYCHOSIS NOS 11/21/2014 RACHNA VALENTIN, JENNIFER R Ot 300.00 ANXIETY STATE NOS 11/21/2014 RACHNA VALENTIN, JENNIFER R Ot 311 DEPRESSIVE DISORDER NEC 11/21/2014 RACHNA VALENTIN, JENNIFER R Ot 401.9 HYPERTENSION NOS 11/21/2014 RACHNA VALENTIN, JENNIFER R Ot 491.20 OBSTR CHRONIC BRONCHITIS, W/O EXACERBATI 11/21/2014 RACHNA VALENTIN, JENNIFER R Ot 493.20 CHRONIC OBSTRUCTIVE ASTHMA, NOS 11/21/2014 RACHNA VALENTIN, JENNIFER R Ot 530.81 ESOPHAGEAL REFLUX 11/21/2014 RACHNA VALENTIN, JENNIFER R Ot 780.60 FEVER, UNSPECIFIED 11/21/2014 RACHNA VALENTIN, JENNIFER R Ot 792.1 ABN FIND-STOOL CONTENTS 11/21/2014 RACHNA VALENTIN, JENNIFER R Ot V03.82 PROPHYLACTIC VACC AGAINST STREPTOCOCCUS 11/21/2014 JENNIFER BRISCOE MD R Ot V15.82 HISTORY OF TOBACCO USE 11/21/2014 RACHNA VALENTIN, JENNIFER R Ot V58.67 LONG-TERM (CURRENT) USE OF INSULIN 01/23/2015 Ot V76.12 01/23/2015 Ot 490 01/23/2015 Ot V49.81 01/23/2015 Ot V82.81 01/23/2015 Ot 331.9 01/23/2015 Ot 780.97 01/23/2015 Ot V81.5 01/23/2015 Ot 414.00 01/23/2015 Ot V76.12 01/23/2015 CHAO VALENTIN, LITO D Ot 438.0 01/23/2015 CHAO VALENTIN, LITO D Ot 473.0 01/23/2015 CHAO VALENTIN, LITO D Ot 787.91 01/23/2015 RACHNA VALENTIN, JENNIFER R Ot V76.12 01/23/2015 RACHNA VALENTIN, JENNIFER R Ot 786.2 01/23/2015 Ot 786.30 01/23/2015 Ot 491.20 01/23/2015 RACHNA VALENTIN, JENNIFER R Ot 715.34 01/23/2015 TRACY GOMEZ DO Ot 496 02/27/2015 Ot V76.12 02/27/2015 Ot 490 02/27/2015 Ot V49.81 02/27/2015 Ot V82.81 02/27/2015 Ot 331.9 02/27/2015 Ot 780.97 02/27/2015 Ot V81.5 02/27/2015 Ot 414.00 02/27/2015 Ot V76.12 02/27/2015 CHAO VALENTIN, LITO D Ot 438.0 02/27/2015 CHAO VALENTIN, LITO D Ot 473.0 02/27/2015 CHAO VALENTIN, LITO D Ot 787.91 02/27/2015 RACHNA VALENTIN, JENNIFER R Ot V76.12 02/27/2015 JENNIFER BRISCOE MD Ot 786.2 02/27/2015 Ot 786.30 02/27/2015 Ot 491.20 02/27/2015 JENNIFER BRISCOE MD Ot 715.34 02/27/2015 TRACY GOMEZ DO Ot 496 10/15/2015 Ot V76.12 OTH SCREEN MAMMO-MALIGN NEOPLASM OF MIGUELINA 10/15/2015 Ot V49.81 ASYMPT POSTMENOPAUSAL STATUS (AGE-RELATE 10/15/2015 Ot V82.81 SCREENING FOR OSTEOPOROSIS 10/15/2015 Ot 331.9 CEREB DEGENERATION NOS 10/15/2015 Ot 780.97 ALTERED MENTAL STATUS 10/15/2015 Ot V81.5 SCREEN FOR NEPHROPATHY 10/15/2015 Ot 414.00 CORON ATHEROSCLER NOS TYPE VESSEL, NATIV 10/15/2015 Ot V76.12 OTH SCREEN MAMMO-MALIGN NEOPLASM OF MIGUELINA 10/15/2015 CHAO VALENTIN, LITO Barrera Ot 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, COGNITIVE 10/15/2015 CHAO VALENTIN, LITO Barrera Ot 473.0 CHR MAXILLARY SINUSITIS 10/15/2015 CHAO VALENTIN, LITO Barrera Ot 787.91 DIARRHEA 10/15/2015 RACHNA VALENTIN, JENNIFER Gallo Ot V76.12 OTH SCREEN MAMMO-MALIGN NEOPLASM OF MIGUELINA 10/15/2015 JENNIFER BRISCOE MD Ot 786.2 COUGH 10/15/2015 Ot 786.30 HEMOPTYSIS, UNSPECIFIED 10/15/2015 Ot 491.20 OBSTR CHRONIC BRONCHITIS, W/O EXACERBATI 10/15/2015 JENNIFER BRISCOE MD Ot 715.34 LOC OSTEOARTH NOS-HAND 10/15/2015 TRACY GOMEZ DO Ot 496 CHR AIRWAY OBSTRUCT NEC 10/15/2015 JOHN GOLDMAN SANDING MACHINE TENDER AUTOMATIC Ot K59.00 CONSTIPATION, UNSPECIFIED 10/16/2015 JOHN GOLDMAN SANDING MACHINE TENDER [employer]AT[employer] Ot K59.00 CONSTIPATION, UNSPECIFIED 10/21/2015 BOLIVAR MICHAEL SANDING MACHINE TENDER [employer]OMATIC Ot R05 COUGH 10/21/2015 BOLIVAR MICHAEL SANDING MACHINE TENDER [employer]OMATIC Ot R09.89 OTH SYMPTOMS AND SIGNS INVOLVING THE CIR 10/25/2015 BOLIVAR MICHAEL SANDING MACHINE TENDER [employer]OMAT[employer] Ot R05 COUGH 10/25/2015 BOLIVAR MICHAEL SANDING MACHINE TENDER [employer]OMATIC Ot R09.89 OTH SYMPTOMS AND SIGNS INVOLVING THE CIR 11/10/2015 BOLIVAR MIHCAEL SANDING MACHINE TENDER AUTOMATIC Ot R05 COUGH 11/10/2015 BOLIVAR MICHAEL SANDING MACHINE TENDER [employer]OMATIC Ot R09.89 OTH SYMPTOMS AND SIGNS INVOLVING THE CIR 11/13/2015 BOLIVAR MICHAEL SANDING MACHINE TENDER AUTOMATIC Ot R05 COUGH 11/13/2015 BOLIVAR MICHAEL SANDING MACHINE TENDER AUTOMATIC Ot R09.89 OTH SYMPTOMS AND SIGNS INVOLVING THE CIR 12/14/2015 Ot 285.9 ANEMIA NOS 12/14/2015 Ot V58.69 OTH MED,LT,CURRENT USE 04/14/2016 Ot 285.9 ANEMIA NOS 04/14/2016 Ot V58.69 OTH MED,LT,CURRENT USE 05/17/2016 TRACY GOMEZ DO S Ot 496 CHR AIRWAY OBSTRUCT NEC 05/23/2016 Ot 414.00 CORON ATHEROSCLER NOS TYPE VESSEL, NATIV 05/23/2016 Ot V76.12 OTH SCREEN MAMMO-MALIGN NEOPLASM OF MIGUELINA 05/23/2016 CHAO VALENTIN, LITO Barrera Ot 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, COGNITIVE 05/23/2016 CHAO VALENTIN, LITO Barrera Ot 473.0 CHR MAXILLARY SINUSITIS 05/23/2016 CHAO VALENTIN, LITO Barrera Ot 787.91 DIARRHEA 05/23/2016 RACHNA VALENTIN, JENNIFER R Ot V76.12 OTH SCREEN MAMMO-MALIGN NEOPLASM OF MIGUELINA 05/23/2016 RACHNA VALENTIN, JENNIFER R Ot 786.2 COUGH 05/23/2016 Ot 786.30 HEMOPTYSIS, UNSPECIFIED 05/23/2016 Ot 491.20 OBSTR CHRONIC BRONCHITIS, W/O EXACERBATI 05/23/2016 RACHNA VALENTIN, JENNIFER R Ot 715.34 LOC OSTEOARTH NOS-HAND 05/23/2016 SOLE GOMEZ DOLINE S Ot 496 CHR AIRWAY OBSTRUCT NEC 05/23/2016 BOLIVAR MICHAEL SANDING MACHINE TENDER [employer]AT[employer] Ot R05 COUGH 05/23/2016 BOLIVAR MICHAEL SANDING MACHINE TENDER AUTOMATIC Ot R09.89 OTH SYMPTOMS AND SIGNS INVOLVING THE CIR 05/23/2016 SOLE GOMEZ DOLINE S Ot 496 05/24/2016 TRACY GOMEZ DO S Ot J44.9 CHRONIC OBSTRUCTIVE PULMONARY DISEASE , U 06/23/2016 SOLE GOMEZ DOLINE S Ot E03.9 HYPOTHYROIDISM, UNSPECIFIED 07/05/2016 Ot 414.00 CORON ATHEROSCLER NOS TYPE VESSEL, NATIV 07/05/2016 Ot V76.12 OTH SCREEN MAMMO-MALIGN NEOPLASM OF MIGUELINA 07/05/2016 CHAO VALENTIN, LITO Barrera Ot 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, COGNITIVE 07/05/2016 CHAO VALENTIN, LITO Barrera Ot 473.0 CHR MAXILLARY SINUSITIS 07/05/2016 CHAO VALENTIN, LITO Barrera Ot 787.91 DIARRHEA 07/05/2016 JENNIFER BRISCOE MD R Ot V76.12 OTH SCREEN MAMMO-MALIGN NEOPLASM OF MIGUELINA 07/05/2016 JENNIFER BRISCOE MD R Ot 786.2 COUGH 07/05/2016 Ot 786.30 HEMOPTYSIS, UNSPECIFIED 07/05/2016 Ot 491.20 OBSTR CHRONIC BRONCHITIS, W/O EXACERBATI 07/05/2016 JENNIFER BRISCOE MD R Ot 715.34 LOC OSTEOARTH NOS-HAND 07/05/2016 PATRICIA TRACY GALARZA S Ot J44.9 CHRONIC OBSTRUCTIVE PULMONARY DISEASE , U 07/05/2016 BOLIVAR MICHAEL SANDING MACHINE TENDER [employer]OMAT[employer] Ot R05 COUGH 07/05/2016 BOLIVAR MICHAEL SANDING MACHINE TENDER AUTOMATIC Ot R09.89 OTH SYMPTOMS AND SIGNS INVOLVING THE CIR 07/05/2016 PATRICIA GALARZA TRACY S Ot E03.9 HYPOTHYROIDISM, UNSPECIFIED 07/06/2016 Ot 414.00 CORON ATHEROSCLER NOS TYPE VESSEL, NATIV 07/06/2016 Ot V76.12 OTH SCREEN MAMMO-MALIGN NEOPLASM OF MIGUELINA 07/06/2016 LITO GUIDRY MD Ot 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, COGNITIVE 07/06/2016 CHAO VALENTIN, LITO Barrera Ot 473.0 CHR MAXILLARY SINUSITIS 07/06/2016 CHAO VALENTIN, LITO Barrera Ot 787.91 DIARRHEA 07/06/2016 JENNIFER BRISCOE MD R Ot V76.12 OTH SCREEN MAMMO-MALIGN NEOPLASM OF MIGUELINA 07/06/2016 RACHNA VALENTIN JENNIFER R Ot 786.2 COUGH 07/06/2016 Ot 786.30 HEMOPTYSIS, UNSPECIFIED 07/06/2016 Ot 491.20 OBSTR CHRONIC BRONCHITIS, W/O EXACERBATI 07/06/2016 RACHNA VALENTIN, JENNIFER R Ot 715.34 LOC OSTEOARTH NOS-HAND 07/06/2016 ORENDER DO, TRACY S Ot J44.9 CHRONIC OBSTRUCTIVE PULMONARY DISEASE , U 07/06/2016 BOLIVAR MICHAEL Gavi SANDING MACHINE TENDER AUTOMATIC Ot R05 COUGH 07/06/2016 BOLIVAR MICHAEL Gavi SANDING MACHINE TENDER [employer]OMATIC Ot R09.89 OTH SYMPTOMS AND SIGNS INVOLVING THE CIR 07/06/2016 ORENDER DO, TRACY S Ot E03.9 HYPOTHYROIDISM, UNSPECIFIED 07/07/2016 ORENDER DO, TRACY S Ot 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 07/07/2016 ORENDER DO, TRACY S Ot 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 07/07/2016 ORENDER DO, TRACY S Ot J44.9 CHRONIC OBSTRUCTIVE PULMONARY DISEASE , U 07/12/2016 ORENDER DO, TRACY S Ot J44.9 CHRONIC OBSTRUCTIVE PULMONARY DISEASE , U 07/15/2016 ORENDER DO, TRACY S Ot E03.9 HYPOTHYROIDISM, UNSPECIFIED 07/18/2016 ORENDER DO, TRACY S Ot E03.9 HYPOTHYROIDISM, UNSPECIFIED 07/27/2016 ORENDER DO, TRACY S Ot 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 08/01/2016 ORENDER DO, TRACY S Ot 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 08/21/2016 ORENDER DO, TRACY S Ot J44.9 CHRONIC OBSTRUCTIVE PULMONARY DISEASE , U 10/13/2016 Ot 285.9 ANEMIA NOS 10/13/2016 Ot V58.69 OTH MED,LT,CURRENT USE 11/07/2016 ORENDER DO, TRACY S Ot Z12.31 ENCNTR SCREEN MAMMOGRAM FOR MALIGNANT NE 11/07/2016 ORENDER DO, TRACY S Ot Z12.31 ENCNTR SCREEN MAMMOGRAM FOR MALIGNANT NE 11/07/2016 ORENDER DO, TRACY S Ot Z12.31 ENCNTR SCREEN MAMMOGRAM FOR MALIGNANT NE 11/12/2016 Ot 414.00 CORON ATHEROSCLER NOS TYPE VESSEL, NATIV 11/12/2016 Ot V76.12 OTH SCREEN MAMMO-MALIGN NEOPLASM OF MIGUELINA 11/12/2016 LITO GUIDRY MD Ot 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, COGNITIVE 11/12/2016 LITO GUIDRY MD Ot 473.0 CHR MAXILLARY SINUSITIS 11/12/2016 LITO GUIDRY MD Ot 787.91 DIARRHEA 11/12/2016 JENNIFER BRISCOE MD Ot V76.12 OTH SCREEN MAMMO-MALIGN NEOPLASM OF MIGUELINA 11/12/2016 JENNIFER BRISCOE MD Ot 786.2 COUGH 11/12/2016 Ot 786.30 HEMOPTYSIS, UNSPECIFIED 11/12/2016 Ot 491.20 OBSTR CHRONIC BRONCHITIS, W/O EXACERBATI 11/12/2016 JENNIFER BRISCOE MD Ot 715.34 LOC OSTEOARTH NOS-HAND 11/12/2016 BOLIVAR MICHAEL SANDING MACHINE TENDER [employer]AT[employer] Ot R05 COUGH 11/12/2016 BOLIVAR MICHAEL APRN Ot R09.89 OTH SYMPTOMS AND SIGNS INVOLVING THE CIR 11/12/2016 TRACY GOMEZ DO Ot E03.9 HYPOTHYROIDISM, UNSPECIFIED 11/12/2016 TRACY GOMEZ DO Ot 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 11/12/2016 TRACY GOMEZ DO Ot Z12.31 ENCNTR SCREEN MAMMOGRAM FOR MALIGNANT NE Procedures Code Description Performed By Performed On 51.23 LAPAROSCOPIC CHOLECYSTECTOMY 07/07/2013 89102 ROUTINE VENIPUNCTURE 11/18/2013 34718 CMP 11/18/2013 61141 LIPID PANEL 11/18 04516 MICROALBUMIN 11/2013 58584 TSH 11/18/2013 79812 CBC 11/18/2013 42266 A1C (IN-HOUSE) 63841 MICRO ALBUMIN-IN HOUSE 11/18/2013 Results Test Result Range Complete blood count (CBC) with automated white blood cell (WBC) differential - 11/12/16 09:10 Blood leukocytes automated count (number/volume) 5.5 10*3/ uL 4.3-11.0 Blood erythrocytes automated count (number/volume) 4.97 10*6 /uL 4.35-5.85 Venous blood hemoglobin measurement (mass/volume) 14.0 g/dL 11.5-16.0 Blood hematocrit (volume fraction) 42 % 35-52 Automated erythrocyte mean corpuscular volume 84 [foz_us] 80-99 Automated erythrocyte mean corpuscular hemoglobin (mass per erythrocyte) 28 pg 25-34 Automated erythrocyte mean corpuscular hemoglobin concentration measurement ( mass/volume) 33 g/dL 32-36 Automated erythrocyte distribution width ratio 13.6 % 10.0-14.5 Automated blood platelet count (count/volume) 171 10*3/uL 130-400 Automated blood platelet mean volume measurement 11.7 [foz_ us] 7.4-10.4 Automated blood neutrophils/100 leukocytes 70 % 42-75 Automated blood lymphocytes/100 leukocytes 22 % 12-44 Blood monocytes/100 leukocytes 8 % 0-12 Automated blood eosinophils/100 leukocytes 1 % 0-10 Automated blood basophils/100 leukocytes 0 % 0-10 Blood neutrophils automated count (number/volume) 3.8 10*3 1.8-7.8 Blood lymphocytes automated count (number/volume) 1.2 10*3 1.0-4.0 Blood monocytes automated count (number/volume) 0.4 10*3 0.0-1.0 Automated eosinophil count 0.1 10*3/uL 0.0-0.3 Automated blood basophil count (count/volume) 0.0 10*3/uL 0.0-0.1 Comprehensive metabolic panel - 11/12/16 09:10 Serum or plasma sodium measurement (moles/volume) 140 mmol/ L 135-145 Serum or plasma potassium measurement (moles/volume) 3.5 mmol/L 3.6-5.0 Serum or plasma chloride measurement (moles/volume) 101 mmol /L 98-107 Carbon dioxide 22 mmol/L 21-32 Serum or plasma anion gap determination (moles/volume) 17 mmol/L 5-14 Serum or plasma urea nitrogen measurement (mass/volume) 9 mg /dL 7-18 Serum or plasma creatinine measurement (mass/volume) 0.72 mg /dL 0.60-1.30 Serum or plasma urea nitrogen/creatinine mass ratio 13 NRG Serum or plasma creatinine measurement with calculation of estimated glomerular filtration rate > NRG Serum or plasma glucose measurement (mass/volume) 129 mg/dL 70-105 Serum or plasma calcium measurement (mass/volume) 9.5 mg/dL 8.5-10.1 Serum or plasma total bilirubin measurement (mass/volume) 0.9 mg/dL 0.1-1.0 Serum or plasma alkaline phosphatase measurement (enzymatic activity/volume) 80 U/L 40-136 Serum or plasma aspartate aminotransferase measurement (enzymatic activity/ volume) 26 U/L 5-34 Serum or plasma alanine aminotransferase measurement (enzymatic activity/volume ) 26 U/L 0-55 Serum or plasma protein measurement (mass/volume) 6.3 g/dL 6.4-8.2 Serum or plasma albumin measurement (mass/volume) 3.4 g/dL 3.2-4.5 Magnesium - 11/12/16 09:10 Magnesium 1.8 mg/dL 1.8-2.4 Serum or plasma amylase measurement (enzymatic activity/volume) - 11/12/16 09: 10 Serum or plasma amylase measurement (enzymatic activity/volume) 38 U/L 25-125 Serum or plasma C reactive protein measurement (mass/volume) - 11/12/16 09:10 Serum or plasma C reactive protein measurement (mass/volume) 0.47 mg/dL 0.00-0.50 Complete urinalysis with reflex to culture - 11/12/16 10:30 Urine color determination YELLOW NRG Urine clarity determination CLEAR NRG Urine pH measurement by test strip 6 5- 9 Specific gravity of urine by test strip 1.015 1.016-1.022 Urine protein assay by test strip, semi-quantitative 2+ NEGATIVE Urine glucose detection by automated test strip NEGATIVE NEGATIVE Erythrocytes detection in urine sediment by light microscopy NEGATIVE NEGATIVE Urine ketones detection by automated test strip 4+ NEGATIVE Urine nitrite detection by test strip NEGATIVE NEGATIVE Urine total bilirubin detection by test strip NEGATIVE NEGATIVE Urine urobilinogen measurement by automated test strip (mass/volume) NORMAL NORMAL Urine leukocyte esterase detection by dipstick 1+ NEGATIVE Automated urine sediment erythrocyte count by microscopy (number/high power field) NONE NRG Automated urine sediment leukocyte count by microscopy (number/high power field ) [HPF] NRG Bacteria detection in urine sediment by light microscopy FEW NRG Crystals detection in urine sediment by light microscopy NONE NRG Casts detection in urine sediment by light microscopy NONE NRG Mucus detection in urine sediment by light microscopy LARGE NRG Complete urinalysis with reflex to culture NO NRG Encounters ACCT No. Visit Date/Time Discharge Status Pt. Type Provider Facility Loc./Unit Complaint [id number] 11/18/2013 08:41:00 11/18/2013 23: 59:59 [facility] Outpatient MADL RYAN VENTURA L [id number] 10/15/2013 14:17:00 10/15/2013 23: 59:59 [facility] Outpatient RYAN POOLE APRN
== END 2016-11-12 11:25 | disposition home or self-care (01) ==
LOC: EDUNIT# 08:30 → ER 08:30
DX: K58.9 Irritable bowel syndrome, unspecified (principal)
CPT/HCPCS: 36415; 74176; 80053; 81000; 82150; 83735; 85025; 86141; 96361; 96374

== ENCOUNTER → 2017-12-19 | Outpatient (CLI) | payer MEDICARE, OTHER ==
[~2017-12-19] VITALS: Ht 165.1 cm; Wt 77.1 kg
[~2017-12-19] MED LIST changes: +DOXE10CA29 PO; +DULO60CA58 PO; +FLUT1DIS28 IH; +HYOS-6 PO; +INSU100V5 SQ; +L. A1CAP11 PO; +LEVO75TA6 PO; +MULT-35 PO; +ONDN4T PO; +RT-ALBUINH IH
== END | disposition home or self-care (01) ==
LOC: PREOP 05:50
PROVIDERS: ATTEND Surgery
DX: Z01.818 Encounter for other preprocedural examination (principal)

== ENCOUNTER 2017-12-22 11:32 | Day surgery (SDC) | payer MEDICARE, OTHER ==
[~2017-12-22] VITALS: Ht 165.1 cm; Wt 77.1 kg
--- NOTE | 2017-12-22 11:48 | Conscious Sedation/ASA ---
Conscious Sedation Pre-Proced Time Reviewed: 11:45 ASA Class: 2 Airway Mallampati Classification: (kenaitze appropriate class) I. II. III, IV Lungs Heart ASA score ASA 1: a normal healthy patient ASA 2: a patient with a mild systemic disease (mid diabetes, controlled hypertension, obesity ASA 3: a patient with a severe systemic disease that limits activity (angina , COPD, prior Myocardial infarction) ASA 4: a patient with an incapacitating disease that is a constant threat to life (CHF, renal failure) ASA 5: a moribund patient not expected to survive 24 hrs. (ruptured aneurysm) ASA 6: a declared brain patient whose organs are being harvested. For emergent operations, add the letter E after the classification Grade 2 Sedation Plan: Analgesia, Amnesia, Plan communicated to team members, Discussed options with patient/fam, Discussed risks with patient/fam Note The patient is an appropriate candidate to undergo the planned procedure, sedation, and anesthesia. The patient immediately re-assessed prior to indication. SANG KWOK MD Dec 22, 2017 11:48 am
--- NOTE | 2017-12-22 11:49 | Progress Note-Pre Operative ---
Pre-Operative Progress Note H&P Reviewed The H&P was reviewed, patient examined and no changes noted. Date Seen by Provider: Dec 22, 2017 Time Seen by Provider: 11:45 Date H&P Reviewed: Dec 22, 2017 Time H&P Reviewed: 11:45 Pre-Operative Diagnosis: hx colon polyp SANG KWOK MD Dec 22, 2017 11:49 am
[2017-12-22] MEDS ORDERED: NS IV 500 ML 500 ML IV PRN (11:50)
[2017-12-22] MEDS ORDERED: NS IV 500 ML 500 ML ONE (11:54)
[2017-12-22] MEDS ORDERED: morphine INJ 10 MG/ML 1ML (SYR OR VIAL) IV PRN (12:00)
[2017-12-22] MEDS ORDERED: ONDANSETRON 4 MG/2 ML (SDV) Z0FRAN IV PRN (12:00)
[2017-12-22] MEDS ORDERED: ACETAMINOPHEN 325 MG TABLET PO PRN (12:00)
[2017-12-22 12:13] VITALS: BP 114/85
[2017-12-22] MEDS ORDERED: LIDOCAINE JELLY 2% (XYLOCAINE) 5 ML TUBE ONE (12:23)
[2017-12-22] MEDS ORDERED: fentaNYL INJECTION 100 MCG/2 ML AMP ONE ×2 (12:24)
[2017-12-22] MEDS ORDERED: MIDAZOLAM 2 MG/2 ML (VERSED) VIAL ONE ×4 (12:24)
[2017-12-22] MEDS: fentaNYL INJECTION 100 MCG/2 ML AMP IVP PRN ×4 (12:45→13:05)
[2017-12-22] MEDS: MIDAZOLAM 2 MG/2 ML (VERSED) VIAL IVP PRN ×3 (12:48→13:02)
--- NOTE | 2017-12-22 13:22 | Progress Note-Post Operative ---
Post-Operative Progess Note Surgeon (s)/Senior Site Manager (s) Surgeon SANG KWOK MD Senior Site Manager: none Pre-Operative Diagnosis hx colon polyp Post-Operative Diagnosis chronic stage 2-3 ext and int hemorrhoids, moderate sigmoid diverticulosis. Procedure & Operative Findings Date of Procedure 12/22/17 Procedure Performed/Findings Colonoscopy. Anesthesia Type CS Estimated Blood Loss Estimated blood loss (mL): minimal Specimens/Packing Specimens Removed none SANG KWOK MD Dec 22, 2017 1:22 pm
--- NOTE | 2017-12-22 13:24 | Discharge Inst-Surgical ---
D/C Lap Instructions-SUNDAR Follow Up 10 years or PRN Activity as tolerated High Fiber Diet 25g or more per day Avoid Alcohol, Caffeine, Spicy [place] and Acid foods. Drink 64 fluid oz or more of fluids per day. Symptoms to Report: Fever over 101 degree F, Nausea/Vomiting If any problems/questions: Contact your physician or go to Emergency Room SANG KWOK MD Dec 22, 2017 1:24 pm
[2017-12-22 13:45] VITALS: BP 126/75
[2017-12-22 14:15] VITALS: BP 114/79
[2017-12-22 14:25] VITALS: BP 114/79
--- NOTE | 2017-12-22 20:09 | OPERATIVE REPORT ---
DATE OF SERVICE: 12/22/2017 ATTENDING PRIMARY FIRE EATER: Smith Mejia APRN PREOPERATIVE DIAGNOSIS: History of C. difficile colitis and history of polyp. POSTOPERATIVE DIAGNOSES: Chronic stage II to III external and internal hemorrhoids, moderate sigmoid diverticulosis. Remainder of the colon was normal. PROCEDURE: Colonoscopy. SURGEON: Sang Minaya MD ANESTHESIA: Conscious sedation. ESTIMATED BLOOD LOSS: Minimal. FINDINGS: Chronic between stage II and III external and internal hemorrhoids with some mild edema; however, easily reducible. Moderate sigmoid diverticulosis with no mucosal inflammatory change to indicate any active diverticulitis. The remainder of the colon was normal. There were no polyps or any neoplasms identified. DISPOSITION: The patient tolerated the procedure well. INDICATIONS: The patient is a 77-year-old female, who has been struggling with diarrhea for the past 5 years. She also reported that before that she had always struggled with constipation. She did have C. difficile colitis identified, which was resistant to standard therapy requiring a fecal transplant. She reports that she did have a colonoscopy after this episode of colitis approximately one year ago; however, does not recall the exact diagnosis. She states that, there was a polyp removed; however, it was not removed. She reports that she has had other colonoscopies where she did have polyps as well; however, benign. DESCRIPTION OF PROCEDURE: The patient was brought to the endoscopy suite, laid in the left lateral decubitus position. After adequate IV pain and sedating medications and conscious sedation anesthesia, a digital rectal examination was performed. Chronic between stage II and III external and internal hemorrhoids were identified, which were not actively edematous nor inflamed and no bleeding. Normal sphincter tone was felt and there were no palpable masses. The endoscope was then intubated to the anus and rectum gently insufflated. The endoscope was then advanced to the valves of Belcher of the rectum with no polyps or any neoplasms identified. Through the sigmoid colon, a moderate sigmoid diverticulosis identified. There were no mucosal inflammatory changes to indicate any active diverticulitis. The endoscope was then advanced to the remainder of the descending, transverse, and ascending colon to the cecum. These segments were normal. There were no polyps or any neoplasms identified throughout the colon or rectum. The endoscope was then slowly withdrawn while taking a second look and suctioning of residual air with no additional findings. The patient tolerated the procedure well. We will recommend continued medical management with a high fiber diet with at least 25 to 30 grams of fiber per day as well as at least 64 fluid ounces of water daily to promote soft stools on a daily basis. She does not have any family history of colon cancer, so she does not need another colonoscopy for another 10 years; however, sooner if any problems arise. Job ID: [id number] DocumentID: [id number] Dictated Date: 12/22/2017 13:18:01 Water Tester Date: 12/22/2017 20:08:51 Dictated By: SNAG MINAYA MD
== END 2017-12-22 14:25 | disposition home or self-care (01) ==
LOC: ENDO 11:32
PROVIDERS: ATTEND Surgery
DX: R19.7 Diarrhea, unspecified (principal); K57.30 Diverticulosis of large intestine without perforation or abscess without bleeding; K64.2 Third degree hemorrhoids; Z87.19 Personal history of other diseases of the digestive system; E11.40 Type 2 diabetes mellitus with diabetic neuropathy, unspecified; J44.9 Chronic obstructive pulmonary disease, unspecified; Z87.891 Personal history of nicotine dependence; Z79.4 Long term (current) use of insulin
CPT/HCPCS: 82962

== ENCOUNTER → 2018-02-05 | Outpatient (CLI) | payer MEDICARE ==
--- NOTE | 2018-02-05 09:34 | Diagnostic Imaging Report ---
PROCEDURE: CT chest without contrast. TECHNIQUE: Multiple contiguous axial images were obtained through the chest without the use of intravenous contrast. INDICATION: COPD Comparison is made to examination of 07/19/2015. There is moderate diffuse centrilobular emphysema throughout the lungs similar to previous examination. Multiple calcified granulomas are seen in the hilar regions as well as subcarinal region. Additional calcified granuloma is seen within the lingula. These findings have remained stable. There is no evidence of new mass or infiltrate. Approximately 1 cm retrosternal lymph node is seen in the anterior mediastinum. No pathologic adenopathy is identified. There is minimal atherosclerotic calcification within coronary arteries. There is an approximately 2.4 x 1.4 cm nodular focus along the inferior margin of the thyroid gland which could represent cyst. IMPRESSION: Stable moderate centrilobular emphysema without evidence of new abnormality or adverse change in the chest. Cystic structure inferior to the thyroid gland has been reported on ultrasound study dated 06/22/2016. Clinical correlation would be useful. Possible followup ultrasonography may be of value if indicated. Dictated by: Dictated on workstation # [id number]
== END ==
LOC: RAD 08:34
PROVIDERS: ATTEND Nurse Practitioner Family
DX: J43.2 Centrilobular emphysema (principal); J42 Unspecified chronic bronchitis; J30.9 Allergic rhinitis, unspecified; E04.1 Nontoxic single thyroid nodule
CPT/HCPCS: 71250

== ENCOUNTER 2018-05-28 08:30 | Outpatient (RCR) | payer MEDICARE, OTHER | END 2018-08-01 | disposition home or self-care (01) | LOC: CARD 08:30 | PROVIDERS: ATTEND Internal Medicine Interventional Cardiology | DX: I47.2 Ventricular tachycardia (principal) | CPT/HCPCS: 93270 ==

== ENCOUNTER 2018-09-11 19:07 | Emergency (ER) | payer MEDICARE ==
[~2018-09-11] VITALS: Ht 165.1 cm; Wt 77.1 kg
--- NOTE | 2018-09-11 20:01 | ED Fall/Injury ---
General Chief Complaint: Trauma-Non Activation Stated Complaint: FALL Nursing Triage Note: pt arrived pov after a fall out of the bath tub. Pt hit head and has brusies and abrasion noted. Pt did not loc, pt is not on a blood thinner. Pt c/o right knee and greco pain and left hand pain as well Source: patient, family Exam Limitations: no limitations History of Present Illness Date Seen by Provider: Sep 11, 2018 Time Seen by Provider: 19:57 Initial Comments Patient fell out of the bathtub, right eyebrow laceration from her glasses, no loss of consciousness, no neck pain, tenderness to the dorsal aspect of the first metacarpal left hand, abrasion right knee. Also has an ecchymosis to the anterior lower greco, however she was ambulatory. There is no deformity. Occurred: just prior to arrival Severity: mild Injuries/Pain Location: head, upper extremity, lower extremity Context: slipped Loss of Consciousness: no loss of consciousness Associated Symptoms (Fall): Denies Symptoms Allergies and Home Medications Allergies Coded Allergies: hydrocodone (Verified Allergy, Intermediate, 12/19/17) PATIENT BECOMES CONFUSED WITH THIS MEDICATIONS prednisone (Verified Allergy, Unknown, 12/19/17) aspirin (Verified Adverse Reaction, Severe, BLEEDING, 12/19/17) Home Medications Albuterol Sulfate 1 Puff Puff, 2 PUFF IH Q6H PRN for COUGH, (Reported) 1 PUFF = 90 MCG Doxepin HCl 10 Mg Capsule, 10 MG PO HS, (Reported) Duloxetine HCl 60 Mg Capsule.dr, 60 MG PO DAILY, (Reported) Fluticasone/Salmeterol 1 Each Blst.w.dev, 1 EACH IH DAILY, (Reported) Gabapentin 100 Mg Capsule, 100 MG PO HS, (Reported) Insulin Determir 1,000 Units/10 Ml Soln, 20 UNITS SQ HS, (Reported) L. Acidophilus/Pectin, [place] 1 Each Capsule, 1 EACH PO TID, (Reported) Levothyroxine Sodium 75 Mcg Tablet, 75 MCG PO DAILY, (Reported) Lovastatin 20 Mg Tablet, 20 MG PO DAILY, (Reported) Multivitamin 1 Each Tablet, 1 EACH PO DAILY, (Reported) Patient Home Medication List Home Medication List Reviewed: Yes Review of Systems Review of Systems Constitutional: see HPI Eyes: No Symptoms Reported Ears, Nose, Mouth, Throat: no symptoms reported Respiratory: no symptoms reported Cardiovascular: no symptoms reported Genitourinary: no symptoms reported Musculoskeletal: see HPI Skin: no symptoms reported Psychiatric/Neurological: No Symptoms Reported Past Otefwrg-Xpuzcg-Bhpbml Hx Patient Social History Former Smoker, Quit: Dec 19, 1989 Recent Foreign Travel: No Contact w/Someone Who Travel: No Recent Infectious Disease Expo: No Recent Hopitalizations: No Immunizations Up To Date Tetanus Booster (TDap): Unknown Date of Pneumonia Vaccine: Feb 27, 2017 Date of Influenza Vaccine: Feb 27, 2017 Seasonal Allergies Seasonal Allergies: Yes Past Medical History Gallbladder, Hysterectomy, Oophorectomy Asthma, Chronic Bronchitis, COPD High Cholesterol, Hypertension, Irregular Heartbeat Neuropathy Reproductive Disorders: No Female Reproductive Disorders: Denies 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 0.4oz. 77.884379il; 28.3 BMI Method:Stated General Appearance: WD/WN, no apparent distress HEENT: PERRL/EOMI, normal ENT inspection, TMs normal Neck: non-tender, full range of motion; No tender lateral, No tender midline Respiratory: chest non-tender, lungs clear, normal breath sounds, no respiratory distress, no accessory muscle use Gastrointestinal: normal bowel sounds, soft Extremities: normal range of motion, non-tender, other (minor ecchymosis over the first metacarpal dorsally left hand. Small abrasion right anterior knee. Half-dollar size ecchymosis anterior right lower leg without deformity. Ecchymosis over the right eyebrow without active bleeding.) Neurologic/Psychiatric: alert, normal mood/affect Skin: normal color, warm/dry [place] Coma Score Best Eye Response: (4) Open Spontaneously Best Verbal Response: (5) Oriented Best Motor Response: (6) Obeys Commands [place] Total: 15 Progress/Results/Core Measures Results/Orders Lab Results Laboratory Tests Test 09/11/18 20:55 Range/Units White Blood Count 6.4 4.3-11.0 10^3/uL Red Blood Count 4.69 4.35-5.85 10^6/uL Hemoglobin 13.9 11.5-16.0 G/DL Hematocrit 42 35-52 % Mean Corpuscular Volume 90 80-99 FL Mean Corpuscular Hemoglobin 30 25-34 PG Mean Corpuscular Hemoglobin Concent 33 32-36 G/DL Red Cell Distribution Width 13.5 10.0-14.5 % Platelet Count 196 130-400 10^3/uL Mean Platelet Volume 11.3 H 7.4-10.4 FL Neutrophils (%) (Auto) 66 42-75 % Lymphocytes (%) (Auto) 24 12-44 % Monocytes (%) (Auto) 8 0-12 % Eosinophils (%) (Auto) 2 0-10 % Basophils (%) (Auto) 1 0-10 % Neutrophils # (Auto) 4.2 1.8-7.8 X 10^3 Lymphocytes # (Auto) 1.5 1.0-4.0 X 10^3 Monocytes # (Auto) 0.5 0.0-1.0 X 10^3 Eosinophils # (Auto) 0.2 0.0-0.3 10^3/uL Basophils # (Auto) 0.0 0.0-0.1 10^3/uL My Orders Orders - JOHN GOLDMAN APRN Ct Head/Cervical Spine Wo (09/11/18 19:54) Hand, Left, 3 Views (09/11/18 19:54) Knee, Right, 3 Views (09/11/18 19:54) Cbc With Automated Diff (09/11/18 20:50) Basic Metabolic Panel (09/11/18 20:50) Protime With Inr (09/11/18 20:50) Partial Thromboplastin Time (09/11/18 20:50) Ed Iv/Invasive Line Start (09/11/18 20:50) Vital Signs/I&O 09/11/18 19:12 Temp 98.2 Pulse 87 Resp 18 B/P (MAP) 124/66 (85) Pulse Ox 100 O2 Delivery Room Air Blood Pressure Mean: 85 Diagnostic Imaging Diagonstic Imaging: Xray Comments NAME: FLAVIA PRADHAN [facility] REC#: [id number] PT STATUS: REG ER : 1940 PHYSICIAN: JOHN GOLDMAN APRN ADMIT DATE: 09/11/18/ER Draft Date of Exam:09/11/18 HAND, LEFT, 3 VIEWS Indication: Fall and hand pain. Time of exam: 8:27 PM Three views of the left hand were obtained. Metacarpals appear to be intact. Phalanges are intact. Distal radius and ulna are unremarkable. There are degenerative changes at the triscaphe and first CMC joints. Impression: Degenerative changes. No acute bony abnormality is detected. Dictated on workstation # [id number] Dict: 09/11/182035 Trans: 09/11/182038 [facility] [id number] Interpreted by: MERT DU MD Electronically signed by: NAME: FLAVIA PRAD[facility]AN [facility] REC#: [id number] PT STATUS: REG ER : 1940 PHYSICIAN: JOHN GOLDMAN APRN ADMIT DATE: 09/11/18/ER Draft Date of Exam:09/11/18 KNEE, RIGHT, 3 VIEWS Indication: Fall and right knee pain. Time of exam: 8:31 PM Three views of the right knee were obtained alignment is normal. Joint spaces are well maintained. The articular surfaces are smooth. No fracture, dislocation or effusion is seen. Impression: No acute bony abnormality is detected. Dictated on workstation # [id number] Dict: 09/11/182035 Trans: 09/11/182039 CVB [id number] Interpreted by: MERT DU MD Electronically signed by: Departure Communication (Admissions) Family Conversation 2038-Spoke with at [facility] in [place] regarding the acute subdural bleed. Will transfer there. NAME: FLAVIA PRADHAN [facility] REC#: [id number] PT STATUS: REG ER : 1940 PHYSICIAN: JOHN GOLDMAN APRN ADMIT DATE: 09/11/18/ER Draft Date of Exam:09/11/18 CT HEAD/CERVICAL SPINE WO PROCEDURE: CT head and CT cervical spine without contrast. TECHNIQUE: Multiple contiguous axial images were obtained through the brain and cervical spine without the use of intravenous contrast. Sagittal and coronal reformations through the cervical spine were then performed. Auto Exposure Controls were utilized during the CT exam to meet ALARA standards for radiation dose reduction. INDICATION: Trauma, fall with head and neck injury. Correlation made with prior head CT from 11/16/2014. CT head: Ventricles and sulci are within normal limits. There is minimal hyperdensity seen along the right frontal convexity, image 16 measuring to a thickness of 3 mm, suggestive of acute subdural blood. There is also tiny area of hyperdensity along the anterior right temporal lobe convexity measuring 2 mm in thickness suggestive of acute subdural blood. There is no mass effect or midline shift. Cisterns are patent. Visualized paranasal sinuses are clear. IMPRESSION: Findings suggestive of minimal acute subdural hemorrhage along the right frontal and right anterior temporal convexity. No other region of intracranial hemorrhage is seen. No mass effect or midline shift is identified. CT cervical spine: There is reversal of the normal cervical curvature. Minimal anterolisthesis of C2 on C3 is seen. There is multilevel degenerative disc disease with disc space narrowing and marginal spurring. No fracture is seen. Prevertebral tissues are within normal limits. Odontoid is intact. IMPRESSION: Cervical spondylosis. No acute bony abnormality is detected. Dictated on workstation # [id number] Dict: 09/11/182020 Trans: 09/11/182027 [facility] [id number] Interpreted by: MERT DU MD Electronically signed by: Impression Primary Impression: Right subdural bleed Additional Impressions: Fall at home Qualified Codes: W19.XXXA - Unspecified fall, initial encounter; Y92.009 - Unspecified place in unspecified non-institutional (private) residence as the place of occurrence of the external cause Abrasion Contusion Qualified Codes: S80.11XA - Contusion of right lower leg, initial encounter Disposition: [facility] Condition: Stable Departure-Patient Inst. Decision time for Depature: 20:01 Referrals: BRYSON GARCES MD (PCP/Family) Primary Care Physician Copy Copies To 1: BRYSON GARCES MD, PETER J APRN Sep 11, 2018 20:01
--- NOTE | 2018-09-11 20:28 | Diagnostic Imaging Report ---
PROCEDURE: CT head and CT cervical spine without contrast. TECHNIQUE: Multiple contiguous axial images were obtained through the brain and cervical spine without the use of intravenous contrast. Sagittal and coronal reformations through the cervical spine were then performed. Auto Exposure Controls were utilized during the CT exam to meet ALARA standards for radiation dose reduction. INDICATION: Trauma, fall with head and neck injury. Correlation made with prior head CT from 11/16/2014. CT head: Ventricles and sulci are within normal limits. There is minimal hyperdensity seen along the right frontal convexity, image 16 measuring to a thickness of 3 mm, suggestive of acute subdural blood. There is also tiny area of hyperdensity along the anterior right temporal lobe convexity measuring 2 mm in thickness suggestive of acute subdural blood. There is no mass effect or midline shift. Cisterns are patent. Visualized paranasal sinuses are clear. IMPRESSION: Findings suggestive of minimal acute subdural hemorrhage along the right frontal and right anterior temporal convexity. No other region of intracranial hemorrhage is seen. No mass effect or midline shift is identified. CT cervical spine: There is reversal of the normal cervical curvature. Minimal anterolisthesis of C2 on C3 is seen. There is multilevel degenerative disc disease with disc space narrowing and marginal spurring. No fracture is seen. Prevertebral tissues are within normal limits. Odontoid is intact. IMPRESSION: Cervical spondylosis. No acute bony abnormality is detected. Dictated by: Dictated on workstation # [id number]
--- NOTE | 2018-09-11 20:30 | NUR ---
NOTED ON PT EXT MED HX PT OBTAINED PLAVIX 07/16/18. PT HAD PREVIOUSLY STATED SHE WASN'T ON BLOOD THINNERS, WHEN ASKED ABOUT TAKING PLAVIX SHE STATED, "OH YES I TAKE PLAVIX, I DIDN'T KNOW IT WAS A BLOOD THINNER."
--- NOTE | 2018-09-11 20:40 | Diagnostic Imaging Report ---
Indication: Fall and hand pain. Time of exam: 8:27 PM Three views of the left hand were obtained. Metacarpals appear to be intact. Phalanges are intact. Distal radius and ulna are unremarkable. There are degenerative changes at the triscaphe and first CMC joints. Impression: Degenerative changes. No acute bony abnormality is detected. Dictated by: Dictated on workstation # [id number]
--- NOTE | 2018-09-11 20:40 | Diagnostic Imaging Report ---
Indication: Fall and right knee pain. Time of exam: 8:31 PM Three views of the right knee were obtained alignment is normal. Joint spaces are well maintained. The articular surfaces are smooth. No fracture, dislocation or effusion is seen. Impression: No acute bony abnormality is detected. Dictated by: Dictated on workstation # [id number]
[2018-09-11 21:04] LABS: BASOPHILS % (AUTO) 1 % (0-10); EOSINOPHILS # (AUTO) 0.2 10^3/uL (0.0-0.3); EOSINOPHILS % (AUTO) 2 % (0-10); HEMATOCRIT 42 % (35-52); HEMOGLOBIN 13.9 G/DL (11.5-16.0); LYMPHOCYTES # (AUTO) 1.5 X 10^3 (1.0-4.0); LYMPHOCYTES % (AUTO) 24 % (12-44); MEAN CORPUSCULAR HEMOGLOBIN 30 PG (25-34); MEAN CORPUSCULAR HGB CONC 33 G/DL (32-36); MEAN CORPUSCULAR VOLUME 90 FL (80-99); MEAN PLATELET VOLUME 11.3 FL (7.4-10.4); MONOCYTES # (AUTO) 0.5 X 10^3 (0.0-1.0); MONOCYTES % (AUTO) 8 % (0-12); NEUTROPHILS # (AUTO) 4.2 X 10^3 (1.8-7.8); NEUTROPHILS % (AUTO) 66 % (42-75); PLATELET COUNT 196 10^3/uL (130-400); RED CELL DISTRIBUTION WIDTH 13.5 % (10.0-14.5); WHITE BLOOD COUNT 6.4 10^3/uL (4.3-11.0)
[2018-09-11 21:16] LABS: INR 0.9 (0.8-1.4); PROTHROMBIN TIME PATIENT 12.7 SEC (12.2-14.7)
[2018-09-11 21:23] LABS: CALCIUM 9.5 MG/DL (8.5-10.1); CREATININE SERUM 1.08 MG/DL (0.60-1.30); POTASSIUM 4.2 MMOL/L (3.6-5.0)
[2018-09-11 21:24] VITALS: BP 121/68
== END 2018-09-11 21:30 | disposition short-term general hospital (02) ==
LOC: EDUNIT# 19:07 → ER 19:09
DX: S06.5X0A Traumatic subdural hemorrhage without loss of consciousness, initial encounter (principal); S80.01XA Contusion of right knee, initial encounter; S60.222A Contusion of left hand, initial encounter; E78.00 Pure hypercholesterolemia, unspecified; J44.9 Chronic obstructive pulmonary disease, unspecified; I10 Essential (primary) hypertension; E11.40 Type 2 diabetes mellitus with diabetic neuropathy, unspecified; K21.9 Gastro-esophageal reflux disease without esophagitis; F41.9 Anxiety disorder, unspecified; F32.9 Major depressive disorder, single episode, unspecified; R40.2142 Coma scale, eyes open, spontaneous, at arrival to emergency department; R40.2252 Coma scale, best verbal response, oriented, at arrival to emergency department; R40.2362 Coma scale, best motor response, obeys commands, at arrival to emergency department; Z87.19 Personal history of other diseases of the digestive system; Z86.010 Personal history of colon polyps; Z88.5 Allergy status to narcotic agent; Z80.1 Family history of malignant neoplasm of trachea, bronchus and lung; Z88.6 Allergy status to analgesic agent; Z88.8 Allergy status to other drugs, medicaments and biological substances; Z90.710 Acquired absence of both cervix and uterus; Z87.891 Personal history of nicotine dependence; Z79.4 Long term (current) use of insulin; Z98.890 Other specified postprocedural states; Z79.51 Long term (current) use of inhaled steroids; W01.0XXA Fall on same level from slipping, tripping and stumbling without subsequent striking against object, initial encounter; W25.XXXA Contact with sharp glass, initial encounter; Y92.002 Bathroom of unspecified non-institutional (private) residence as the place of occurrence of the external cause
CPT/HCPCS: 36415; 70450; 72125; 73130; 73562; 80048; 82962; 85025; 85610; 85730

== ENCOUNTER → 2018-11-09 | Outpatient (CLI) | payer MEDICARE | LOC: RAD 11:09 | PROVIDERS: ATTEND Nurse Practitioner Family | DX: Z12.31 Encounter for screening mammogram for malignant neoplasm of breast (principal) | CPT/HCPCS: 77067 ==

== ENCOUNTER → 2019-04-15 | Outpatient (CLI) | payer MEDICAID, MEDICARE, OTHER ==
[~2019-04-15] MED LIST changes: -DULO60CA58 PO; +DULO60CA59 PO; +GADOBUTROL 7.5 MMOL/7.5 ML (GADAVIST) VIAL IV ONE
--- NOTE | 2019-04-15 13:50 | Diagnostic Imaging Report ---
PROCEDURE: MR imaging of the brain with and without contrast. TECHNIQUE: Multiplanar, multisequence MR imaging of the brain was performed with and without contrast. INDICATION: Dementia. Hypertension. History of diabetes. Comparison: 12/13/2012 Findings: No acute ischemia, mass, or hemorrhage. No abnormal enhancement is seen. Chronic microvascular disease is seen in the periventricular and subcortical white matter. The ventricles and cortical sulci are diffusely prominent. The basilar cisterns are symmetric and unremarkable. The sellar and suprasellar regions have a normal appearance. The brainstem and posterior fossa are unremarkable. The paranasal sinuses and mastoid air cells demonstrate normal signal characteristics. The globes and orbits are symmetric and unremarkable. The scalp and calvarium have a normal appearance. Impression: 1. No acute ischemia, mass, or hemorrhage. No abnormal enhancement is visualized. 2. Chronic microvascular disease. 3. Generalized parenchymal volume loss. Dictated by: Dictated on workstation # [id number]
== END ==
LOC: RAD 08:26
PROVIDERS: ATTEND Family Medicine
DX: I10 Essential (primary) hypertension (principal); E11.9 Type 2 diabetes mellitus without complications; F03.90 Unspecified dementia, unspecified severity, without behavioral disturbance, psychotic disturbance, mood disturbance, and anxiety
CPT/HCPCS: 70553

== ENCOUNTER → 2019-06-27 | Outpatient (CLI) | payer OTHER ==
[~2019-06-27] MED LIST changes: -GADOBUTROL 7.5 MMOL/7.5 ML (GADAVIST) VIAL IV ONE
== END ==
LOC: LAB 15:25
PROVIDERS: ATTEND Family Medicine
DX: R19.7 Diarrhea, unspecified (principal)
CPT/HCPCS: 87324; 87449

== ENCOUNTER → 2019-08-12 | Outpatient (CLI) | payer MEDICARE ==
[2019-08-12 15:03] LABS: BASOPHILS % (AUTO) 0 % (0-10); EOSINOPHILS # (AUTO) 0.1 10^3/uL (0.0-0.3); EOSINOPHILS % (AUTO) 2 % (0-10); HEMATOCRIT 41 % (35-52); HEMOGLOBIN 13.7 G/DL (11.5-16.0); LYMPHOCYTES # (AUTO) 1.2 X 10^3 (1.0-4.0); LYMPHOCYTES % (AUTO) 20 % (12-44); MEAN CORPUSCULAR HEMOGLOBIN 29 PG (25-34); MEAN CORPUSCULAR HGB CONC 33 G/DL (32-36); MEAN CORPUSCULAR VOLUME 89 FL (80-99); MEAN PLATELET VOLUME 11.5 FL (7.4-10.4); MONOCYTES # (AUTO) 0.5 X 10^3 (0.0-1.0); MONOCYTES % (AUTO) 8 % (0-12); NEUTROPHILS # (AUTO) 4.1 X 10^3 (1.8-7.8); NEUTROPHILS % (AUTO) 70 % (42-75); PLATELET COUNT 183 10^3/uL (130-400); WHITE BLOOD COUNT 5.9 10^3/uL (4.3-11.0)
== END ==
LOC: LAB 14:44
PROVIDERS: ATTEND Family Medicine
DX: E11.9 Type 2 diabetes mellitus without complications (principal); I10 Essential (primary) hypertension
CPT/HCPCS: 36415; 83036; 85025

== ENCOUNTER → 2019-11-12 | Outpatient (CLI) | payer MEDICARE ==
--- NOTE | 2019-11-12 13:20 | Diagnostic Imaging Report ---
INDICATION: Routine screening. COMPARISON: 11/09/2018 and 11/08/2017. TECHNIQUE: 2D and 3D bilateral screening mammography was performed with CAD. FINDINGS: Both breasts are heterogeneously dense, limiting the sensitivity of mammography. There are benign parenchymal and vascular calcifications bilaterally. No dominant mass or malignant appearing microcalcifications are identified. The axillae are unremarkable. IMPRESSION: No mammographic features suspicious for malignancy are identified. ACR BI-RADS Category 2: Benign findings. Result letter will be mailed to the patient. Note: At least 10% of breast cancer is not imaged by mammography. Dictated by: Dictated on workstation # [id number]
== END ==
LOC: RAD 10:28
PROVIDERS: ATTEND Family Medicine
DX: Z12.31 Encounter for screening mammogram for malignant neoplasm of breast (principal)
CPT/HCPCS: 77063; 77067

== ENCOUNTER → 2019-11-27 | Outpatient (CLI) | payer MEDICARE | LOC: LABNPT 06:58 | PROVIDERS: ATTEND Family Medicine | DX: Z01.812 Encounter for preprocedural laboratory examination (principal); Z53.8 Procedure and treatment not carried out for other reasons ==

== ENCOUNTER → 2019-12-02 | Outpatient (CLI) | payer MEDICARE | LOC: LABNPT 06:38 | PROVIDERS: ATTEND Family Medicine | DX: Z01.812 Encounter for preprocedural laboratory examination (principal) ==

== ENCOUNTER → 2019-12-18 | Outpatient (CLI) | payer MEDICARE ==
[2019-12-18 12:48] LABS: BILIRUBIN,URINE NEGATIVE (NEGATIVE); CLARITY,URINE CLEAR; COLOR,URINE YELLOW; GLUCOSE, URINE (UA) NEGATIVE (NEGATIVE); KETONES,URINE NEGATIVE (NEGATIVE); LEUKOCYTE ESTERASE ,URINE 2+ (NEGATIVE); NITRITE,URINE POSITIVE (NEGATIVE); PH,URINE 5.5 (5-9); PROTEIN,URINE TRACE (NEGATIVE)
[2019-12-18 12:55] LABS: BACTERIA,URINE LARGE /HPF; URINE OTHER 0-2 TRANS EPIS /HPF; WBC,URINE >100 /HPF
== END ==
LOC: LAB 11:53
PROVIDERS: ATTEND Family Medicine
DX: E11.9 Type 2 diabetes mellitus without complications (principal); I10 Essential (primary) hypertension; Z87.448 Personal history of other diseases of urinary system
CPT/HCPCS: 36415; 80061; 81000; 82043; 83036; 84550; 87077; 87088